=== PATIENT | female | born 1955 | race Caucasian/White ===

== ENCOUNTER 2016-03-19 05:15 | Emergency (ER) | payer BC, OTHER ==
[2016-03-19 05:23] VITALS: BMI 21.4
--- NOTE | 2016-03-19 06:03 | PDOC ---
History of Present Illness - General History Source: Patient Exam Limitations: No Limitations - History of Present Illness Initial Comments: 03/19/16 06:10 The patient is a 60 year old female with history of hypertension, diabetes, in a persistent vegetative state s/p trach tube, brought in by EMS with her for difficulty breathing.. Per the , the patient was noted to be desatting tonight. Her family tried to clean her trach tube with only brief improvement of her O2 sat. Her O2 saturation continued to decrease, prompting them to bring the patient to the ED for evaluation. No fever or recent illness. Patient is unable to provide remainder of history secondary to persistent vegetative state. <Diane Granados - Last Filed: 03/19/16 06:18> <Siddharth Schaeffer - Last Filed: 03/19/16 07:41> - General Chief Complaint: Respiratory Distress Stated Complaint: DIFF BREATHING Time Seen by Provider: 03/19/16 05:22 Past History <Diane Granados - Last Filed: 03/19/16 06:18> - Past Medical History Cancer: Yes (thymoma 25 years ago s/p chemoradiation therapy) Cardiac Disorders: Yes (cardiac arrest) CVA: Yes Diabetes: Yes HTN: Yes - Psycho/Social/Smoking Cessation Hx Anxiety: No Suicidal Ideation: No Smoking History: Never smoked Have you smoked in the past 12 months: No Number of Cigarettes Smoked Daily: 0 Hx Alcohol Use: No Drug/Substance Use Hx: No Substance Use Type: None Hx Substance Use Treatment: No <Siddharth Schaeffer - Last Filed: 03/19/16 07:41> - Past Medical History Allergies/Adverse Reactions: Allergies Allergy/AdvReac Type Severity Reaction Status Date / Time No Known Allergies Allergy Verified 10/01/15 08:42 Home Medications: Ambulatory Orders Ascorbic Acid [Vitamin C] 500 mg GT DAILY 10/01/15 Calcium Citrate 0 mg GT DAILY 10/01/15 Digoxin [Lanoxin -] 0 mg GT DAILY 10/01/15 Insulin Glargine,Hum.rec.anlog [Lantus (10mL VIAL) -] 34 units SQ AM 10/01/15 Insulin Regular [Novolin R Vial -] 0 unit SQ TID 10/01/15 Iron 65 mg GT DAILY 10/01/15 Levothyroxine [Synthroid -] 75 mcg GT DAILY 10/01/15 Metformin HCl [Metformin HCl ER] 500 mg GT BID 10/01/15 Multivitamin [Poly-Vitamin] 1 each GT DAILY 10/01/15 Ramipril 2.5 mg GT BID 10/01/15 Warfarin Sodium [Coumadin] 2 mg GT DAILY 10/01/15 Levofloxacin [Levaquin] 750 mg PO DAILY #10 tablet MDD 1 03/19/16 Review of Systems - Review of Systems Able to Perform ROS?: No Comments:: 03/19/16 06:15 Unable to obtain ROS secondary to clinical condition. <Diane Granados - Last Filed: 03/19/16 06:18> *Physical Exam - Vital Signs Last Vital Signs Temp Pulse Resp BP Pulse Ox 101.3 F H 97 H 16 109/67 100 03/19/16 05:19 03/19/16 05:19 03/19/16 05:19 03/19/16 05:19 03/19/16 05:19 - Physical Exam Comments: 03/19/16 06:16 GENERAL: Breathing, but in vegetative state. Not arousable to stimuli. HEAD: No signs of trauma EYES: Sclera anicteric, conjunctiva clear ENT: Auricles normal inspection, nares patent. Moist mucosa. NECK: Normal ROM, supple, no lymphadenopathy, JVD, or masses LUNGS: Upper airway trasmitted sounds. Rhonchi at the left lung base. HEART: Regular rate and rhythm, normal S1 and S2, no murmurs, rubs or gallops ABDOMEN: Soft, normoactive bowel sounds. No guarding, no rebound. No masses EXTREMITIES: No edema. No clubbing or cyanosis. No cords, erythema. NEUROLOGICAL: Unable to assess. SKIN: Warm, Dry, normal turgor. <Diane Granados - Last Filed: 03/19/16 06:18> - Vital Signs Last Vital Signs Temp Pulse Resp BP Pulse Ox 101.3 F H 97 H 16 109/67 100 03/19/16 05:19 03/19/16 05:19 03/19/16 05:19 03/19/16 05:19 03/19/16 05:19 <Siddharth Schaeffer - Last Filed: 03/19/16 07:41> ED Treatment Course - LABORATORY CBC & Chemistry Diagram: 03/19/16 06:00 03/19/16 06:00 <Diane Granados - Last Filed: 03/19/16 06:18> - LABORATORY CBC & Chemistry Diagram: 03/19/16 06:00 03/19/16 06:00 - RADIOLOGY Radiology Studies Ordered: Category Date Time Status CHEST X-RAY PORTABLE* [RAD] Stat Radiology 03/19/16 05:23 Ordered <Siddharth Shcaeffer - Last Filed: 03/19/16 07:41> Medical Decision Making - Medical Decision Making 03/19/16 06:19 O2 Sat is 98 on ED arrival. Plan- CBC, CMP, Lactic Acid, BNP, PT/INT Blood cultures Chest x-ray <Diane Granados - Last Filed: 03/19/16 06:18> - Medical Decision Making 03/19/16 07:40 Patient's does not want to admit her to the hospital. Dr Castro is out of town. Dr. Corley is covering and thinks that would be ok. Encouraged the to bring her back if she is not improving. Will DC Home on Levqauin. <Siddharth Schaeffer - Last Filed: 03/19/16 07:41> *DC/Admit/Observation/Transfer - Attestations Scribe Attestion: 03/19/16 06:18 Documentation prepared by Diane Granados, acting as medical translator for Siddharth Schaeffer DO. <Diane Granados - Last Filed: 03/19/16 06:18> - Discharge Dispostion Admit: No - Attestations Physician Attestion: 03/19/16 05:58 I, Dr. Siddharth Schaeffer, attest that this document has been prepared under my direction and personally reviewed by me in its entirety. I further attest, that it accurately reflects all work, treatment, procedures and medical decision -making performed by me. <Siddharth Schaeffer - Last Filed: 03/19/16 07:41> Diagnosis at time of Disposition: Right lower lobe pneumonia Qualifiers: Pneumonia type: aspiration pneumonia Aspiration pneumonia type: unspecified Qualified Code(s): J69.0 - Pneumonitis due to inhalation of food and vomit - Discharge Dispostion Disposition: HOME Condition at time of disposition: Guarded - Prescriptions Prescriptions: Levofloxacin [Levaquin] 750 mg PO DAILY #10 tablet MDD 1 - Referrals Referrals: Irma Castro MD [Primary Care Provider] - - Patient Instructions Printed Discharge Instructions: Pneumonia-Adult, DI for Pneumonia -- Adult Additional Instructions: Dr. Ornelas- I think Levaquin is better than Augmentin for this pneumonia. I spoke with Dr. Corley, it is not the best for her to go home, but I understand why you would prefer it that way. I am not going to ask you to sign AMA but I want you to promise to bring her back if she is getting worse or not improving. All the best- Dr. Siddharth Schaeffer
[2016-03-19 06:17] LABS: MCH 23.1 pg (25.7-33.7); MCHC 30.7 g/dl (32.0-36.0); MEAN CELL VOLUME 75.2 fl (80-96); MEAN PLT VOLUME 8.9 fl (7.5-11.1); PLATELET COUNT 382 K/MM3 (134-434); RDW 19.3 % (11.6-15.6); WHITE BLOOD COUNT 20.5 K/mm3 (4.0-10.0)
[2016-03-19] MEDS ORDERED: INSULIN DETEMIR 100 UNITS/ML MDV SQ ONE ×2 (06:20→06:23)
[2016-03-19 06:30] LABS: INR 1.29 (0.82-1.09); PROTHROMBIN TIME (PATIENT) 14.3 SEC (9.98-11.88)
[2016-03-19 06:40] LABS: ALBUMIN 3.5 g/dl (3.4-5.0); ANION GAP 10 (8-16); BILIRUBIN,TOTAL 1.1 mg/dL (0.2-1.0); CALCIUM 9.1 mg/dL (8.5-10.1); CO2 30 mmol/L (21-32); CREATININE 0.6 mg/dL (0.55-1.02); GLUCOSE,RANDOM 252 mg/dL (74-106); SGPT/ALT 19 U/L (12-78); TOT PROT 8.3 g/dl (6.4-8.2)
[2016-03-19 06:42] LABS: ALK PHOS 105 U/L (45-117)
[2016-03-19 06:45] LABS: SGOT/AST 27 U/L (15-37)
[2016-03-19] MEDS ORDERED: CEFTRIAXONE 1 GM in DEXTROSE 5%-WATER - 50 ML IVPB ONE (07:16)
[2016-03-19] MEDS ORDERED: AZITHROMYCIN IVPB 500 MG in DEXTROSE 5%-WATER - 250 ML IVPB ONE (07:16)
[2016-03-19] MEDS ORDERED: CEFTRIAXONE 50 ML ONE (07:24)
[2016-03-19 07:37] VITALS: BP 104/56; PULSE 90; TEMP 99.7
[2016-03-19] MEDS ORDERED: SODIUM CHLORIDE 0.9% 1000 ML INFUS.BAG IV ONE (09:08)
== END 2016-03-19 09:31 | disposition home or self-care (01) ==
LOC: JER 05:15
PROC: 3E03329 Introduction of Other Anti-infective into Peripheral Vein, Percutaneous Approach (ICD-10-PCS; principal; 2016-03-19)
PROC: 3E013VG Introduction of Insulin into Subcutaneous Tissue, Percutaneous Approach (ICD-10-PCS; 2016-03-19)
DX: J69.0 Pneumonitis due to inhalation of food and vomit (principal); Z93.0 Tracheostomy status; I10 Essential (primary) hypertension; E11.9 Type 2 diabetes mellitus without complications; Z79.4 Long term (current) use of insulin; Z86.73 Personal history of transient ischemic attack (TIA), and cerebral infarction without residual deficits; Z86.74 Personal history of sudden cardiac arrest; Z85.89 Personal history of malignant neoplasm of other organs and systems
CPT/HCPCS: 36415; 71010-TC; 80053; 83605; 83880; 85025; 85610; 87040; 99285-25

== ENCOUNTER 2017-05-30 21:32 | Inpatient (IN) | payer OTHER ==
[2017-05-30 21:50] VITALS: BMI 20.9
[2017-06-18 08:54] VITALS: BP 101/63; TEMP 97.5
[2017-06-18 09:12] VITALS: PULSE 73
== END 2017-06-18 11:14 | disposition home or self-care (01) | DRG 870 ==
LOC: JER 21:32 → JERBED 05-31 03:33 → J7W 05-31 08:07 → JICU 06-01 13:45 → J5S 06-05 16:56
PROVIDERS: ADMIT Internal Medicine; ATTEND Internal Medicine
PROC: 3E0G76Z Introduction of Nutritional Substance into Upper GI, Via Natural or Artificial Opening (ICD-10-PCS; 2017-05-31)
PROC: 5A1955Z Respiratory Ventilation, Greater than 96 Consecutive Hours (ICD-10-PCS; principal; 2017-06-01)
DX: A41.9 Sepsis, unspecified organism (principal); J18.1 Lobar pneumonia, unspecified organism; J96.21 Acute and chronic respiratory failure with hypoxia; L89.154 Pressure ulcer of sacral region, stage 4; M86.8X8 Other osteomyelitis, other site; G93.1 Anoxic brain damage, not elsewhere classified; K94.23 Gastrostomy malfunction; I50.22 Chronic systolic (congestive) heart failure; E87.1 Hypo-osmolality and hyponatremia; N39.0 Urinary tract infection, site not specified; R64 Cachexia; J95.851 Ventilator associated pneumonia; I25.10 Atherosclerotic heart disease of native coronary artery without angina pectoris; Z79.01 Long term (current) use of anticoagulants; I50.9 Heart failure, unspecified; Z79.4 Long term (current) use of insulin; N20.0 Calculus of kidney; E11.69 Type 2 diabetes mellitus with other specified complication; L89.159 Pressure ulcer of sacral region, unspecified stage; I27.20 Pulmonary hypertension, unspecified; K59.8 Other specified functional intestinal disorders; K59.01 Slow transit constipation; Y83.8 Other surgical procedures as the cause of abnormal reaction of the patient, or of later complication, without mention of misadventure at the time of the procedure; L98.8 Other specified disorders of the skin and subcutaneous tissue; D64.9 Anemia, unspecified; E83.39 Other disorders of phosphorus metabolism; E03.9 Hypothyroidism, unspecified; Z86.73 Personal history of transient ischemic attack (TIA), and cerebral infarction without residual deficits; Z93.0 Tracheostomy status; I34.0 Nonrheumatic mitral (valve) insufficiency; I36.1 Nonrheumatic tricuspid (valve) insufficiency; I44.7 Left bundle-branch block, unspecified; I48.2 Chronic atrial fibrillation; I35.0 Nonrheumatic aortic (valve) stenosis; Y84.8 Other medical procedures as the cause of abnormal reaction of the patient, or of later complication, without mention of misadventure at the time of the procedure
CPT/HCPCS: 36415; 36600; 71045-TC-FY; 74018-TC-FY; 74177-TC; 80048; 80053; 80076; 81003; 81015; 82803; 82962; 83605; 83690; 83735; 83880; 84100; 84443; 84480; 84484; 85025; 85027; 85610; 85730; 87040; 87070; 87086; 87186; 87205; 93005; 93010; 93306-TC; 94002; 94640; 99284-25; G0480; J7030; J7620

== ENCOUNTER 2020-03-21 04:28 | Inpatient (IN) | payer OTHER ==
[2020-03-21] MEDS ORDERED: VANCOMYCIN 1 GM in D5W (PRE-DOCKED) 1,000 MG/250 ML IVPB ONE (04:44)
[2020-03-21] MEDS ORDERED: PIPERACILLIN/TAZOB 4.5 GM 4.5 GM in DEXTROSE 5%-WATER 100 ML IVPB ONE (04:44)
[2020-03-21] MEDS ORDERED: LACTATED RINGERS SOLUTION 1000 ML INFUS.BAG IV ONE (04:45)
[2020-03-21] MEDS ORDERED: PIPERACILLIN/TAZOB 4.5 GM 4.5 GM/100 ML BAG IVPB ONE (05:00)
[2020-03-21 05:10] LABS: BASO % 0.2 % (0-2.0); EOS % 0.1 % (0-4.5); HEMATOCRIT 35.5 % (32.4-45.2); HEMOGLOBIN 11.6 GM/dL (10.7-15.3); LYMPH % 2.9 % (8-40); MCH 23.7 pg (25.7-33.7); MCHC 32.7 g/dl (32.0-36.0); MEAN CELL VOLUME 72.5 fl (80-96); MEAN PLT VOLUME 9.4 fl (7.5-11.1); MONO % 6.2 % (3.8-10.2); NEUT % 90.6 % (42.8-82.8); PLATELET COUNT 217 K/MM3 (134-434); RDW 17.2 % (11.6-15.6); WHITE BLOOD COUNT 16.4 K/mm3 (4.0-10.0)
[2020-03-21 05:19] LABS: INR 1.56 (0.83-1.09); PROTHROMBIN TIME (PATIENT) 18.6 SEC (9.7-13.0)
[2020-03-21 05:21] LABS: ACTIVATED PTT 31.7 SECONDS (25.2-36.5)
[2020-03-21 05:30] LABS: POTASSIUM 4.5 mmol/L (3.5-5.1)
[2020-03-21] MEDS ORDERED: VANCOMYCIN 1 GRAM (PRE-DOCKED) 1,000 MG/250 ML BAG IVPB ONE (05:31)
[2020-03-21 05:32] LABS: ALBUMIN 3.2 g/dl (3.4-5.0); BLOOD UREA NITROGEN 30.6 mg/dL (7-18); CALCIUM 8.9 mg/dL (8.5-10.1)
[2020-03-21 05:35] LABS: CREATININE 0.6 mg/dL (0.55-1.3)
[2020-03-21 05:37] LABS: BILIRUBIN,TOTAL 1.6 mg/dL (0.2-1)
[2020-03-21 05:48] LABS: EPI CELLS 15 /uL (0-25.1); HYALINE CASTS 3 /uL (0-3.1); URINE APPEARANCE CLOUDY; URINE BACTERIA 1169 /uL (0-1359); URINE BILIRUBIN NEGATIVE (NEGATIVE); URINE COLOR DK YELLOW; URINE GLUCOSE (UA) NEGATIVE (NEGATIVE); URINE KETONE TRACE (NEGATIVE); URINE LEUK ESTERASE 3+ (NEGATIVE); URINE NITRITE NEGATIVE (NEGATIVE); URINE PROTEIN 1+ (NEGATIVE); URINE WBC 1542 /uL (0-25.8)
[2020-03-21] MEDS ORDERED: SODIUM CHLORIDE 0.9% 500 ML INFUS.BAG IV ONE (05:53)
[2020-03-21] MEDS ORDERED: ACETAMINOPHEN 1000 MG/100 ML VIAL (NON FORMULARY) IVPB ONE (06:03)
[2020-03-21] MEDS ORDERED: ACETAMINOPHEN INJECTION 100 ML IVPB ONE (06:05)
[2020-03-21 06:38] LABS: URINE RBC 84.9 /uL (0-23.9)
[2020-03-21] MEDS: CARVEDILOL 6.25 MG TABLET (FP) GT SCH ×2 (09:04→22:14)
[2020-03-21] MEDS: FERROUS SO4 300 MG/5 ML ORAL SOLN UNIT DOSE CUPS GT SCH (09:05)
[2020-03-21] MEDS: DIGOXIN 250 MCG/5 ML LIQUID GT SCH (09:05)
[2020-03-21] MEDS: LEVOTHYROXINE NA 75 MCG TABLET (FP) GT SCH (09:07)
[2020-03-21] MEDS: ASCORBIC ACID 500 MG/5 ML UNIT DOSE CUP GT SCH (09:07)
[2020-03-21] MEDS: INSULIN SLIDING SCALE (NOVOLOG) 1 VIAL SQ SCH ×3 (09:18→22:13)
[2020-03-21] MEDS ORDERED: PATIENT'S OWN MEDICATION (NON-FORMULARY) (Multivitamin [Poly-Vitamin] 1 EACH Tab.Chew) GT SCH (10:00)
[2020-03-21] MEDS ORDERED: PATIENT'S OWN MEDICATION (NON-FORMULARY) (Calcium Carb, Citrate/Vit D3 [Calcium + D3 Er Ta GT SCH (10:00)
[2020-03-22] MEDS: INSULIN SLIDING SCALE (NOVOLOG) 1 VIAL SQ SCH ×4 (03:02→21:43)
[2020-03-22] MEDS: LEVOTHYROXINE NA 75 MCG TABLET (FP) GT SCH (07:09)
[2020-03-22] MEDS ORDERED: SODIUM CHLORIDE 0.9% 500 ML INFUS.BAG IV ONE (09:13)
[2020-03-22] MEDS: CARVEDILOL 6.25 MG TABLET (FP) GT SCH (11:37)
[2020-03-22] MEDS: DIGOXIN 250 MCG/5 ML LIQUID GT SCH (11:37)
[2020-03-22] MEDS: FERROUS SO4 300 MG/5 ML ORAL SOLN UNIT DOSE CUPS GT SCH (11:37)
[2020-03-22] MEDS: ASCORBIC ACID 500 MG/5 ML UNIT DOSE CUP GT SCH (11:38)
[2020-03-22] MEDS ORDERED: INSULIN (NOVOLOG) ASPART 100 UNITS/ML 10ML VIAL ONE (13:39)
[2020-03-22] MEDS ORDERED: cefTAZidime PENTAHYDRATE 1 GM/50ML PRE-DOCKED (RESTRICTED TO ID) IVPB SCH (13:45)
[2020-03-22] MEDS ORDERED: D5-1/2NS+20 MEQ KCL - 20 MEQ/1,000 ML INFUS.BAG IV SCH (14:15)
[2020-03-22] MEDS ORDERED: ACETAMINOPHEN 1000 MG/100 ML VIAL (NON FORMULARY) IVPB ONE (14:15)
[2020-03-22] MEDS ORDERED: DEXTROSE 5%-WATER - 50 ML IVPB ONE (17:52)
[2020-03-22] MEDS ORDERED: cefTAZidime PENTAHYDRATE 1 GM VIAL (RESTRICTED TO ID) ONE (17:52)
[2020-03-22] MEDS: CEFTAZIDIME PENTAHYDRATE 1 GM in DEXTROSE 5%-WATER - 50 ML IVPB SCH (18:00)
[2020-03-22] MEDS: AMINO ACIDS 4.25%/D5W 1,000 ML IV SCH (21:48)
[2020-03-23] MEDS: CARVEDILOL 6.25 MG TABLET (FP) GT SCH ×3 (00:39→22:33)
[2020-03-23] MEDS ORDERED: PT OWN MED DRAWER 7, Y5N ONE (02:50)
[2020-03-23] MEDS: INSULIN SLIDING SCALE (NOVOLOG) 1 VIAL SQ SCH ×3 (02:52→16:23)
[2020-03-23] MEDS ORDERED: cefTAZidime PENTAHYDRATE 1 GM VIAL (RESTRICTED TO ID) ONE ×3 (03:35→16:45)
[2020-03-23] MEDS ORDERED: DEXTROSE 5%-WATER - 50 ML IVPB ONE ×3 (03:35→16:45)
[2020-03-23] MEDS: CEFTAZIDIME PENTAHYDRATE 1 GM in DEXTROSE 5%-WATER - 50 ML IVPB SCH ×3 (03:38→17:07)
[2020-03-23] MEDS: LEVOTHYROXINE NA 75 MCG TABLET (FP) GT SCH (06:16)
[2020-03-23] MEDS: FERROUS SO4 300 MG/5 ML ORAL SOLN UNIT DOSE CUPS GT SCH (10:03)
[2020-03-23] MEDS: AMINO ACIDS 4.25%/D5W 1,000 ML IV SCH (10:06)
[2020-03-23] MEDS: ASCORBIC ACID 500 MG/5 ML UNIT DOSE CUP GT SCH (10:47)
[2020-03-23] MEDS: DIGOXIN 250 MCG/5 ML LIQUID GT SCH (10:47)
[2020-03-23] MEDS: SILVER SULFADIAZINE 1% TOP CREAM 50 GM JAR TP SCH (14:30)
[2020-03-23 16:34] VITALS: BMI 25.8
[2020-03-24] MEDS ORDERED: DEXTROSE 5%-WATER - 50 ML IVPB ONE ×3 (00:36→17:05)
[2020-03-24] MEDS ORDERED: cefTAZidime PENTAHYDRATE 1 GM VIAL (RESTRICTED TO ID) ONE ×3 (00:36→17:04)
[2020-03-24] MEDS: CEFTAZIDIME PENTAHYDRATE 1 GM in DEXTROSE 5%-WATER - 50 ML IVPB SCH ×3 (02:02→17:19)
[2020-03-24] MEDS: LEVOTHYROXINE NA 75 MCG TABLET (FP) GT SCH (06:08)
[2020-03-24] MEDS: INSULIN SLIDING SCALE (NOVOLOG) 1 VIAL SQ SCH ×2 (06:45→17:19)
[2020-03-24] MEDS ORDERED: PT OWN MED DRAWER 7, Y5N ONE ×2 (09:46→18:43)
[2020-03-24] MEDS: CARVEDILOL 6.25 MG TABLET (FP) GT SCH ×2 (09:50→21:28)
[2020-03-24] MEDS: SILVER SULFADIAZINE 1% TOP CREAM 50 GM JAR TP SCH (09:50)
[2020-03-24] MEDS: ASCORBIC ACID 500 MG/5 ML UNIT DOSE CUP GT SCH (09:50)
[2020-03-24] MEDS: FERROUS SO4 300 MG/5 ML ORAL SOLN UNIT DOSE CUPS GT SCH (09:50)
[2020-03-24] MEDS: DIGOXIN 250 MCG/5 ML LIQUID GT SCH (09:50)
[2020-03-25] MEDS ORDERED: DEXTROSE 5%-WATER - 50 ML IVPB ONE ×3 (00:45→16:26)
[2020-03-25] MEDS ORDERED: cefTAZidime PENTAHYDRATE 1 GM VIAL (RESTRICTED TO ID) ONE ×3 (00:45→16:26)
[2020-03-25] MEDS: CEFTAZIDIME PENTAHYDRATE 1 GM in DEXTROSE 5%-WATER - 50 ML IVPB SCH ×3 (01:18→17:05)
[2020-03-25] MEDS: INSULIN SLIDING SCALE (NOVOLOG) 1 VIAL SQ SCH ×2 (07:05→17:06)
[2020-03-25] MEDS: LEVOTHYROXINE NA 75 MCG TABLET (FP) GT SCH (07:05)
[2020-03-25] MEDS ORDERED: PT OWN MED DRAWER 7, Y5N ONE (08:57)
[2020-03-25] MEDS: DIGOXIN 250 MCG/5 ML LIQUID GT SCH (09:43)
[2020-03-25] MEDS: ASCORBIC ACID 500 MG/5 ML UNIT DOSE CUP GT SCH (09:43)
[2020-03-25] MEDS: FERROUS SO4 300 MG/5 ML ORAL SOLN UNIT DOSE CUPS GT SCH (09:43)
[2020-03-25] MEDS: CARVEDILOL 6.25 MG TABLET (FP) GT SCH ×2 (09:44→22:57)
[2020-03-25 10:05] LABS: HEMATOCRIT 25.6 % (32.4-45.2); HEMOGLOBIN 8.5 GM/dL (10.7-15.3); MCH 23.8 pg (25.7-33.7); MCHC 33.3 g/dl (32.0-36.0); MEAN CELL VOLUME 71.6 fl (80-96); MEAN PLT VOLUME 9.6 fl (7.5-11.1); PLATELET COUNT 220 K/MM3 (134-434); RBC 3.57 M/mm3 (3.60-5.2); RDW 17.1 % (11.6-15.6)
[2020-03-25 10:12] LABS: POTASSIUM 3.5 mmol/L (3.5-5.1)
[2020-03-25 10:29] LABS: ALBUMIN 2.6 g/dl (3.4-5.0); BLOOD UREA NITROGEN 17.5 mg/dL (7-18); CALCIUM 8.4 mg/dL (8.5-10.1)
[2020-03-25 10:32] LABS: CREATININE 0.5 mg/dL (0.55-1.3)
[2020-03-25 10:33] LABS: TOT PROT 6.9 g/dl (6.4-8.2)
[2020-03-25 10:35] LABS: BILIRUBIN,TOTAL 1.4 mg/dL (0.2-1)
[2020-03-25] MEDS: SILVER SULFADIAZINE 1% TOP CREAM 50 GM JAR TP SCH (13:00)
[2020-03-25] MEDS ORDERED: INSULIN (NOVOLOG) ASPART 100 UNITS/ML 10ML VIAL ONE (16:26)
[2020-03-26] MEDS ORDERED: cefTAZidime PENTAHYDRATE 1 GM VIAL (RESTRICTED TO ID) ONE ×3 (02:10→16:43)
[2020-03-26] MEDS ORDERED: DEXTROSE 5%-WATER - 50 ML IVPB ONE ×3 (02:10→16:43)
[2020-03-26] MEDS: CEFTAZIDIME PENTAHYDRATE 1 GM in DEXTROSE 5%-WATER - 50 ML IVPB SCH ×3 (02:13→16:50)
[2020-03-26] MEDS ORDERED: PANTOPRAZOLE SODIUM 40 MG VIAL IVPUSH ONE (02:15)
[2020-03-26] MEDS ORDERED: METOCLOPRAMIDE HCL INJECTION 10 MG/2 ML VIAL IVPUSH ONE (02:15)
[2020-03-26] MEDS: INSULIN SLIDING SCALE (NOVOLOG) 1 VIAL SQ SCH ×2 (07:09→16:48)
[2020-03-26] MEDS: LEVOTHYROXINE NA 75 MCG TABLET (FP) GT SCH (07:09)
[2020-03-26 09:27] LABS: BASO % 0.4 % (0-2.0); EOS % 2.7 % (0-4.5); HEMATOCRIT 29.1 % (32.4-45.2); HEMOGLOBIN 9.3 GM/dL (10.7-15.3); LYMPH % 12.1 % (8-40); MCH 22.9 pg (25.7-33.7); MCHC 32.1 g/dl (32.0-36.0); MEAN CELL VOLUME 71.4 fl (80-96); MONO % 8.4 % (3.8-10.2); NEUT % 76.4 % (42.8-82.8); PLATELET COUNT 268 K/MM3 (134-434); RBC 4.08 M/mm3 (3.60-5.2); RDW 17.4 % (11.6-15.6); WHITE BLOOD COUNT 12.8 K/mm3 (4.0-10.0)
[2020-03-26] MEDS: FERROUS SO4 300 MG/5 ML ORAL SOLN UNIT DOSE CUPS GT SCH (09:35)
[2020-03-26] MEDS: CARVEDILOL 6.25 MG TABLET (FP) GT SCH ×2 (09:35→22:20)
[2020-03-26 09:42] LABS: POTASSIUM 3.2 mmol/L (3.5-5.1)
[2020-03-26 10:01] LABS: ALBUMIN 2.8 g/dl (3.4-5.0); BLOOD UREA NITROGEN 13.4 mg/dL (7-18); CALCIUM 8.5 mg/dL (8.5-10.1)
[2020-03-26 10:05] LABS: BILIRUBIN,TOTAL 1.2 mg/dL (0.2-1); TOT PROT 7.3 g/dl (6.4-8.2)
[2020-03-26] MEDS: DIGOXIN 250 MCG/5 ML LIQUID GT SCH (10:07)
[2020-03-26] MEDS: ASCORBIC ACID 500 MG/5 ML UNIT DOSE CUP GT SCH (10:07)
[2020-03-26 10:08] LABS: CREATININE 0.4 mg/dL (0.55-1.3)
[2020-03-26] MEDS: SILVER SULFADIAZINE 1% TOP CREAM 50 GM JAR TP SCH (11:30)
[2020-03-26 11:48] LABS: MAGNESIUM 1.9 mg/dL (1.8-2.4)
[2020-03-26] MEDS ORDERED: POTASSIUM CHLORIDE 10 MEQ PREMIX IVPB (POTASSIUM RIDER) IVPB SCH (12:15)
[2020-03-26] MEDS: PANTOPRAZOLE SODIUM 40 MG VIAL IVPUSH SCH (12:31)
[2020-03-26] MEDS: POTASSIUM CHLORIDE 10 MEQ PREMIX IVPB (POTASSIUM RIDER) IVPB SCH ×2 (12:31→12:32)
[2020-03-26] MEDS: BACITRACIN 15 GM TUBE TOPICAL OINTMENT TP SCH (12:31)
[2020-03-26] MEDS: ONDANSETRON 4 MG/2 ML VIAL IVPUSH PRN (12:35)
[2020-03-26] MEDS: ENOXAPARIN NA (PORCINE) 40 MG/0.4 ML DISP.SYRIN SQ SCH (12:42)
[2020-03-26] MEDS: KCL 10 MEQ IVPB 10 MEQ/100 ML INFUS.BAG IVPB SCH ×3 (12:52→15:04)
[2020-03-26] MEDS: AMINO ACIDS 4.25%/D5W 1,000 ML IV SCH ×2 (16:19→23:40)
[2020-03-27] MEDS ORDERED: DEXTROSE 5%-WATER - 50 ML IVPB ONE ×3 (01:23→16:58)
[2020-03-27] MEDS ORDERED: cefTAZidime PENTAHYDRATE 1 GM VIAL (RESTRICTED TO ID) ONE ×3 (01:23→16:57)
[2020-03-27] MEDS: CEFTAZIDIME PENTAHYDRATE 1 GM in DEXTROSE 5%-WATER - 50 ML IVPB SCH ×3 (01:48→17:08)
[2020-03-27] MEDS: AMINO ACIDS 4.25%/D5W 1,000 ML IV SCH ×4 (05:25→23:15)
[2020-03-27] MEDS: INSULIN SLIDING SCALE (NOVOLOG) 1 VIAL SQ SCH ×2 (06:35→17:09)
[2020-03-27] MEDS: LEVOTHYROXINE NA 75 MCG TABLET (FP) GT SCH (06:35)
[2020-03-27 09:32] LABS: ALBUMIN 2.4 g/dl (3.4-5.0)
[2020-03-27 09:33] LABS: BLOOD UREA NITROGEN 17.5 mg/dL (7-18)
[2020-03-27 09:35] LABS: CREATININE 0.5 mg/dL (0.55-1.3)
[2020-03-27 09:36] LABS: TOT PROT 6.5 g/dl (6.4-8.2)
[2020-03-27 09:37] LABS: CALCIUM 8.1 mg/dL (8.5-10.1); MAGNESIUM 1.7 mg/dL (1.8-2.4)
[2020-03-27] MEDS: PANTOPRAZOLE SODIUM 40 MG VIAL IVPUSH SCH (09:45)
[2020-03-27] MEDS: FERROUS SO4 300 MG/5 ML ORAL SOLN UNIT DOSE CUPS GT SCH (09:50)
[2020-03-27] MEDS: ENOXAPARIN NA (PORCINE) 40 MG/0.4 ML DISP.SYRIN SQ SCH (09:50)
[2020-03-27] MEDS: CARVEDILOL 6.25 MG TABLET (FP) GT SCH ×2 (09:52→22:52)
[2020-03-27] MEDS: ASCORBIC ACID 500 MG/5 ML UNIT DOSE CUP GT SCH (09:53)
[2020-03-27] MEDS: DIGOXIN 250 MCG/5 ML LIQUID GT SCH (10:06)
[2020-03-27] MEDS: POTASSIUM CHLORIDE 20 MEQ PREMIX IVPB 100 ML IVPB SCH (11:53)
[2020-03-27] MEDS ORDERED: POTASSIUM CHLORIDE ORAL LIQUID 20 MEQ/15 ML PO ONE (12:00)
[2020-03-27] MEDS ORDERED: MAGNESIUM SULF 50% (8.12 MEQ/2 ML-1 GM VIAL) IVPB ONE (12:00)
[2020-03-27] MEDS: BACITRACIN 15 GM TUBE TOPICAL OINTMENT TP SCH (12:25)
[2020-03-27] MEDS: SILVER SULFADIAZINE 1% TOP CREAM 50 GM JAR TP SCH (12:25)
[2020-03-27] MEDS: KCL 10 MEQ IVPB 10 MEQ/100 ML INFUS.BAG IVPB SCH ×3 (13:08→15:43)
[2020-03-27 14:53] LABS: PHOSPHOROUS 1.2 mg/dL (2.5-4.9)
[2020-03-27 19:34] LABS: BASO % 0.7 % (0-2.0); HEMATOCRIT 28.1 % (32.4-45.2); HEMOGLOBIN 8.8 GM/dL (10.7-15.3); LYMPH % 12.9 % (8-40); MCH 22.8 pg (25.7-33.7); MCHC 31.4 g/dl (32.0-36.0); MEAN CELL VOLUME 72.5 fl (80-96); MEAN PLT VOLUME 10.8 fl (7.5-11.1); MONO % 9.9 % (3.8-10.2); NEUT % 73.5 % (42.8-82.8); PLATELET COUNT 280 K/MM3 (134-434); RBC 3.88 M/mm3 (3.60-5.2); RDW 17.9 % (11.6-15.6); WHITE BLOOD COUNT 13.5 K/mm3 (4.0-10.0)
[2020-03-27 21:09] LABS: ANISOCYTOSIS 3+; MACROCYTOSIS 0; OVALOCYTE 1+; PLATELET ESTIMATE NORMAL; TARGET CELLS 1+
[2020-03-27] MEDS: DOXYCYCLINE INJECTION 100 MG in DEXTROSE 5%-WATER - 100 ML IVPB SCH (22:52)
[2020-03-28] MEDS ORDERED: DEXTROSE 5%-WATER - 50 ML IVPB ONE ×3 (04:02→17:11)
[2020-03-28] MEDS ORDERED: cefTAZidime PENTAHYDRATE 1 GM VIAL (RESTRICTED TO ID) ONE ×3 (04:02→17:11)
[2020-03-28] MEDS: CEFTAZIDIME PENTAHYDRATE 1 GM in DEXTROSE 5%-WATER - 50 ML IVPB SCH ×3 (04:06→17:25)
[2020-03-28] MEDS: AMINO ACIDS 4.25%/D5W 1,000 ML IV SCH ×3 (06:41→18:15)
[2020-03-28] MEDS: LEVOTHYROXINE NA 75 MCG TABLET (FP) GT SCH ×2 (06:41→06:50)
[2020-03-28] MEDS: INSULIN SLIDING SCALE (NOVOLOG) 1 VIAL SQ SCH ×2 (06:47→17:38)
[2020-03-28] MEDS ORDERED: POTASSIUM CHLORIDE TABS 20 MEQ TABLET.ER (FP) PO SCH (10:00)
[2020-03-28 10:08] LABS: BASO % 0.5 % (0-2.0); EOS % 3.4 % (0-4.5); HEMATOCRIT 25.7 % (32.4-45.2); HEMOGLOBIN 8.2 GM/dL (10.7-15.3); LYMPH % 15.6 % (8-40); MCH 23.1 pg (25.7-33.7); MCHC 32.1 g/dl (32.0-36.0); MEAN CELL VOLUME 71.9 fl (80-96); MEAN PLT VOLUME 9.3 fl (7.5-11.1); MONO % 9.9 % (3.8-10.2); NEUT % 70.6 % (42.8-82.8); PLATELET COUNT 271 K/MM3 (134-434); RBC 3.57 M/mm3 (3.60-5.2); RDW 17.3 % (11.6-15.6)
[2020-03-28 10:33] LABS: ALBUMIN 2.5 g/dl (3.4-5.0); BLOOD UREA NITROGEN 17.2 mg/dL (7-18); CALCIUM 8.3 mg/dL (8.5-10.1); MAGNESIUM 1.9 mg/dL (1.8-2.4)
[2020-03-28 10:36] LABS: CREATININE 0.5 mg/dL (0.55-1.3)
[2020-03-28 10:38] LABS: BILIRUBIN,TOTAL 1.6 mg/dL (0.2-1); TOT PROT 6.7 g/dl (6.4-8.2)
[2020-03-28 11:20] LABS: POTASSIUM 2.9 mmol/L (3.5-5.1)
[2020-03-28] MEDS: ENOXAPARIN NA (PORCINE) 40 MG/0.4 ML DISP.SYRIN SQ SCH (11:45)
[2020-03-28] MEDS: CARVEDILOL 6.25 MG TABLET (FP) GT SCH ×2 (11:48→22:27)
[2020-03-28] MEDS: DOXYCYCLINE INJECTION 100 MG in DEXTROSE 5%-WATER - 100 ML IVPB SCH ×2 (12:18→22:27)
[2020-03-28] MEDS: ASCORBIC ACID 500 MG/5 ML UNIT DOSE CUP GT SCH (15:30)
[2020-03-28] MEDS: FERROUS SO4 300 MG/5 ML ORAL SOLN UNIT DOSE CUPS GT SCH (15:30)
[2020-03-28] MEDS: POTASSIUM CHLORIDE ORAL LIQUID 20 MEQ/15 ML GT SCH ×2 (15:30→22:27)
[2020-03-28] MEDS: PANTOPRAZOLE SODIUM 40 MG VIAL IVPUSH SCH (15:32)
[2020-03-28] MEDS: SILVER SULFADIAZINE 1% TOP CREAM 50 GM JAR TP SCH (15:33)
[2020-03-28] MEDS: DIGOXIN 250 MCG/5 ML LIQUID GT SCH (15:33)
[2020-03-28] MEDS: BACITRACIN 15 GM TUBE TOPICAL OINTMENT TP SCH (15:33)
[2020-03-29] MEDS ORDERED: cefTAZidime PENTAHYDRATE 1 GM VIAL (RESTRICTED TO ID) ONE ×3 (01:08→17:11)
[2020-03-29] MEDS ORDERED: DEXTROSE 5%-WATER - 50 ML IVPB ONE ×3 (01:08→17:11)
[2020-03-29] MEDS: AMINO ACIDS 4.25%/D5W 1,000 ML IV SCH ×2 (01:55→06:23)
[2020-03-29] MEDS: CEFTAZIDIME PENTAHYDRATE 1 GM in DEXTROSE 5%-WATER - 50 ML IVPB SCH ×3 (01:56→17:14)
[2020-03-29] MEDS: INSULIN SLIDING SCALE (NOVOLOG) 1 VIAL SQ SCH ×2 (06:25→16:28)
[2020-03-29] MEDS: POTASSIUM CHLORIDE ORAL LIQUID 20 MEQ/15 ML GT SCH ×3 (06:33→21:58)
[2020-03-29] MEDS: LEVOTHYROXINE NA 75 MCG TABLET (FP) GT SCH (06:33)
[2020-03-29] MEDS ORDERED: PT OWN MED DRAWER 7, Y5N ONE (09:13)
[2020-03-29] MEDS: PANTOPRAZOLE SODIUM 40 MG VIAL IVPUSH SCH (09:29)
[2020-03-29] MEDS: FERROUS SO4 300 MG/5 ML ORAL SOLN UNIT DOSE CUPS GT SCH (09:29)
[2020-03-29] MEDS: CARVEDILOL 6.25 MG TABLET (FP) GT SCH ×2 (09:29→21:58)
[2020-03-29] MEDS: DIGOXIN 250 MCG/5 ML LIQUID GT SCH (09:30)
[2020-03-29] MEDS: DOXYCYCLINE INJECTION 100 MG in DEXTROSE 5%-WATER - 100 ML IVPB SCH ×2 (09:35→21:59)
[2020-03-29] MEDS: ENOXAPARIN NA (PORCINE) 40 MG/0.4 ML DISP.SYRIN SQ SCH (09:50)
[2020-03-29 10:19] LABS: POTASSIUM 4.1 mmol/L (3.5-5.1)
[2020-03-29 10:26] LABS: CALCIUM 8.4 mg/dL (8.5-10.1)
[2020-03-29 10:27] LABS: ALBUMIN 2.6 g/dl (3.4-5.0); BLOOD UREA NITROGEN 20.4 mg/dL (7-18)
[2020-03-29 10:30] LABS: BILIRUBIN,TOTAL 0.8 mg/dL (0.2-1); CREATININE 0.5 mg/dL (0.55-1.3); TOT PROT 6.8 g/dl (6.4-8.2)
[2020-03-29] MEDS: ONDANSETRON 4 MG/2 ML VIAL IVPUSH PRN (11:54)
[2020-03-29] MEDS: BACITRACIN 15 GM TUBE TOPICAL OINTMENT TP SCH (13:00)
[2020-03-29] MEDS: SILVER SULFADIAZINE 1% TOP CREAM 50 GM JAR TP SCH (13:00)
[2020-03-29] MEDS: ASCORBIC ACID 500 MG/5 ML UNIT DOSE CUP GT SCH (14:05)
[2020-03-30] MEDS ORDERED: DEXTROSE 5%-WATER - 50 ML IVPB ONE ×3 (00:05→18:12)
[2020-03-30] MEDS ORDERED: cefTAZidime PENTAHYDRATE 1 GM VIAL (RESTRICTED TO ID) ONE ×3 (00:05→18:11)
[2020-03-30] MEDS: CEFTAZIDIME PENTAHYDRATE 1 GM in DEXTROSE 5%-WATER - 50 ML IVPB SCH ×3 (01:49→18:14)
[2020-03-30] MEDS: INSULIN SLIDING SCALE (NOVOLOG) 1 VIAL SQ SCH ×2 (06:35→16:42)
[2020-03-30] MEDS: POTASSIUM CHLORIDE ORAL LIQUID 20 MEQ/15 ML GT SCH (06:35)
[2020-03-30] MEDS: LEVOTHYROXINE NA 75 MCG TABLET (FP) GT SCH (06:37)
[2020-03-30] MEDS ORDERED: INSULIN (NOVOLOG) ASPART 100 UNITS/ML 10ML VIAL ONE (06:52)
[2020-03-30] MEDS ORDERED: PT OWN MED DRAWER 7, Y5N ONE ×2 (09:08→22:04)
[2020-03-30] MEDS: BACITRACIN 15 GM TUBE TOPICAL OINTMENT TP SCH (09:54)
[2020-03-30] MEDS: CARVEDILOL 6.25 MG TABLET (FP) GT SCH ×2 (09:54→22:07)
[2020-03-30] MEDS: ASCORBIC ACID 500 MG/5 ML UNIT DOSE CUP GT SCH (09:58)
[2020-03-30] MEDS: ENOXAPARIN NA (PORCINE) 40 MG/0.4 ML DISP.SYRIN SQ SCH (09:59)
[2020-03-30] MEDS: FERROUS SO4 300 MG/5 ML ORAL SOLN UNIT DOSE CUPS GT SCH (09:59)
[2020-03-30] MEDS: DIGOXIN 250 MCG/5 ML LIQUID GT SCH (10:00)
[2020-03-30] MEDS: PANTOPRAZOLE SODIUM 40 MG VIAL IVPUSH SCH (10:01)
[2020-03-30] MEDS: SILVER SULFADIAZINE 1% TOP CREAM 50 GM JAR TP SCH (10:01)
[2020-03-30] MEDS: DOXYCYCLINE INJECTION 100 MG in DEXTROSE 5%-WATER - 100 ML IVPB SCH ×2 (10:02→22:11)
[2020-03-30] MEDS: MULTIVIT-MINERALS ORAL LIQUID GT SCH (10:02)
[2020-03-31] MEDS ORDERED: cefTAZidime PENTAHYDRATE 1 GM VIAL (RESTRICTED TO ID) ONE ×2 (01:05→10:47)
[2020-03-31] MEDS ORDERED: DEXTROSE 5%-WATER - 50 ML IVPB ONE ×2 (01:05→10:47)
[2020-03-31] MEDS: CEFTAZIDIME PENTAHYDRATE 1 GM in DEXTROSE 5%-WATER - 50 ML IVPB SCH ×2 (01:16→11:38)
[2020-03-31] MEDS: INSULIN SLIDING SCALE (NOVOLOG) 1 VIAL SQ SCH ×2 (06:32→16:39)
[2020-03-31] MEDS: LEVOTHYROXINE NA 75 MCG TABLET (FP) GT SCH (06:33)
[2020-03-31] MEDS: PANTOPRAZOLE SODIUM 40 MG VIAL IVPUSH SCH (11:37)
[2020-03-31] MEDS: SILVER SULFADIAZINE 1% TOP CREAM 50 GM JAR TP SCH (11:37)
[2020-03-31] MEDS: ENOXAPARIN NA (PORCINE) 40 MG/0.4 ML DISP.SYRIN SQ SCH (11:37)
[2020-03-31] MEDS: BACITRACIN 15 GM TUBE TOPICAL OINTMENT TP SCH (11:38)
[2020-03-31] MEDS: DOXYCYCLINE INJECTION 100 MG in DEXTROSE 5%-WATER - 100 ML IVPB SCH ×2 (11:38→22:45)
[2020-03-31] MEDS: MULTIVIT-MINERALS ORAL LIQUID GT SCH (15:10)
[2020-03-31] MEDS: CARVEDILOL 6.25 MG TABLET (FP) GT SCH ×2 (15:11→22:45)
[2020-03-31] MEDS: FERROUS SO4 300 MG/5 ML ORAL SOLN UNIT DOSE CUPS GT SCH (15:11)
[2020-03-31] MEDS: DIGOXIN 250 MCG/5 ML LIQUID GT SCH (15:11)
[2020-03-31] MEDS: ASCORBIC ACID 500 MG/5 ML UNIT DOSE CUP GT SCH (15:12)
[2020-03-31] MEDS: ALBUTEROL SO4 2.5/IPRATROPIUM 0.5 INH SOL 3 ML VIAL.NEB. NEB SCH ×2 (15:53→20:05)
[2020-03-31] MEDS ORDERED: PT OWN MED DRAWER 7, Y5N ONE (22:30)
[2020-04-01] MEDS: LEVOTHYROXINE NA 75 MCG TABLET (FP) GT SCH (06:05)
[2020-04-01] MEDS: INSULIN SLIDING SCALE (NOVOLOG) 1 VIAL SQ SCH ×2 (06:05→16:15)
[2020-04-01] MEDS: ALBUTEROL SO4 2.5/IPRATROPIUM 0.5 INH SOL 3 ML VIAL.NEB. NEB SCH ×4 (08:30→20:10)
[2020-04-01] MEDS: BACITRACIN 15 GM TUBE TOPICAL OINTMENT TP SCH (10:00)
[2020-04-01] MEDS ORDERED: PT OWN MED DRAWER 7, Y5N ONE ×4 (10:26→21:51)
[2020-04-01] MEDS: ENOXAPARIN NA (PORCINE) 40 MG/0.4 ML DISP.SYRIN SQ SCH (11:04)
[2020-04-01] MEDS: INSULIN (LEVEMIR) 100 UNITS/ML UNITS SQ SCH (11:04)
[2020-04-01] MEDS: MULTIVIT-MINERALS ORAL LIQUID GT SCH (11:05)
[2020-04-01] MEDS: ASCORBIC ACID 500 MG/5 ML UNIT DOSE CUP GT SCH (11:05)
[2020-04-01] MEDS: CARVEDILOL 6.25 MG TABLET (FP) GT SCH ×2 (11:07→22:45)
[2020-04-01] MEDS: DIGOXIN 250 MCG/5 ML LIQUID GT SCH (11:08)
[2020-04-01] MEDS: PANTOPRAZOLE SODIUM 40 MG VIAL IVPUSH SCH (12:31)
[2020-04-01] MEDS: DOXYCYCLINE INJECTION 100 MG in DEXTROSE 5%-WATER - 100 ML IVPB SCH (12:31)
[2020-04-01] MEDS: SILVER SULFADIAZINE 1% TOP CREAM 50 GM JAR TP SCH (13:00)
[2020-04-01] MEDS: FERROUS SO4 300 MG/5 ML ORAL SOLN UNIT DOSE CUPS GT SCH (13:06)
[2020-04-01] MEDS: FAMOTIDINE 40 MG/5 ML ORAL SUSPENSION NGT SCH ×2 (17:50→22:45)
[2020-04-02] MEDS: INSULIN SLIDING SCALE (NOVOLOG) 1 VIAL SQ SCH ×2 (06:03→16:45)
[2020-04-02] MEDS: LEVOTHYROXINE NA 75 MCG TABLET (FP) GT SCH (06:03)
[2020-04-02] MEDS: INSULIN (LEVEMIR) 100 UNITS/ML UNITS SQ SCH (06:03)
[2020-04-02] MEDS: ALBUTEROL SO4 2.5/IPRATROPIUM 0.5 INH SOL 3 ML VIAL.NEB. NEB SCH ×4 (08:05→20:53)
[2020-04-02] MEDS: FERROUS SO4 300 MG/5 ML ORAL SOLN UNIT DOSE CUPS GT SCH (10:10)
[2020-04-02] MEDS: DIGOXIN 250 MCG/5 ML LIQUID GT SCH (10:11)
[2020-04-02] MEDS: CARVEDILOL 6.25 MG TABLET (FP) GT SCH ×2 (10:11→22:04)
[2020-04-02] MEDS: MULTIVIT-MINERALS ORAL LIQUID GT SCH (10:11)
[2020-04-02] MEDS: FAMOTIDINE 40 MG/5 ML ORAL SUSPENSION NGT SCH ×2 (10:11→22:04)
[2020-04-02] MEDS: ASCORBIC ACID 500 MG/5 ML UNIT DOSE CUP GT SCH (10:11)
[2020-04-02] MEDS: ENOXAPARIN NA (PORCINE) 40 MG/0.4 ML DISP.SYRIN SQ SCH (10:11)
[2020-04-02] MEDS: BACITRACIN 15 GM TUBE TOPICAL OINTMENT TP SCH (10:12)
[2020-04-02 10:45] LABS: BASO % 0.8 % (0-2.0); EOS % 3.4 % (0-4.5); HEMATOCRIT 32.8 % (32.4-45.2); HEMOGLOBIN 10.4 GM/dL (10.7-15.3); LYMPH % 14.5 % (8-40); MCH 23.4 pg (25.7-33.7); MCHC 31.6 g/dl (32.0-36.0); MONO % 12.2 % (3.8-10.2); NEUT % 69.1 % (42.8-82.8); PLATELET COUNT 285 K/MM3 (134-434); RBC 4.43 M/mm3 (3.60-5.2); WHITE BLOOD COUNT 10.8 K/mm3 (4.0-10.0)
[2020-04-02 10:56] LABS: POTASSIUM 4.4 mmol/L (3.5-5.1)
[2020-04-02 10:59] LABS: ALBUMIN 2.8 g/dl (3.4-5.0); BLOOD UREA NITROGEN 16.8 mg/dL (7-18); CALCIUM 9.3 mg/dL (8.5-10.1)
[2020-04-02 11:01] LABS: CREATININE 0.5 mg/dL (0.55-1.3)
[2020-04-02 11:03] LABS: BILIRUBIN,TOTAL 1.1 mg/dL (0.2-1); TOT PROT 7.2 g/dl (6.4-8.2)
[2020-04-02] MEDS: NYSTATIN 100,000 UNIT/GM TOPICAL CREAM 15 GM TUBE TP SCH (12:00)
[2020-04-02] MEDS: SILVER SULFADIAZINE 1% TOP CREAM 50 GM JAR TP SCH (12:00)
[2020-04-02] MEDS ORDERED: INSULIN (NOVOLOG) ASPART 100 UNITS/ML 10ML VIAL ONE (20:02)
[2020-04-02] MEDS ORDERED: PT OWN MED DRAWER 7, Y5N ONE (22:03)
[2020-04-03] MEDS: INSULIN SLIDING SCALE (NOVOLOG) 1 VIAL SQ SCH ×2 (06:20→16:42)
[2020-04-03] MEDS: LEVOTHYROXINE NA 75 MCG TABLET (FP) GT SCH (06:21)
[2020-04-03] MEDS: ALBUTEROL SO4 2.5/IPRATROPIUM 0.5 INH SOL 3 ML VIAL.NEB. NEB SCH ×4 (08:50→21:30)
[2020-04-03] MEDS: BACITRACIN 15 GM TUBE TOPICAL OINTMENT TP SCH (11:23)
[2020-04-03] MEDS: MULTIVIT-MINERALS ORAL LIQUID GT SCH (11:28)
[2020-04-03] MEDS: SILVER SULFADIAZINE 1% TOP CREAM 50 GM JAR TP SCH (11:28)
[2020-04-03] MEDS: NYSTATIN 100,000 UNIT/GM TOPICAL CREAM 15 GM TUBE TP SCH (11:28)
[2020-04-03] MEDS: ASCORBIC ACID 500 MG/5 ML UNIT DOSE CUP GT SCH (11:28)
[2020-04-03] MEDS: ENOXAPARIN NA (PORCINE) 40 MG/0.4 ML DISP.SYRIN SQ SCH (11:29)
[2020-04-03] MEDS: FAMOTIDINE 40 MG/5 ML ORAL SUSPENSION NGT SCH ×2 (11:33→21:37)
[2020-04-03] MEDS: DIGOXIN 250 MCG/5 ML LIQUID GT SCH (11:35)
[2020-04-03] MEDS: CARVEDILOL 6.25 MG TABLET (FP) GT SCH ×2 (11:37→21:37)
[2020-04-03] MEDS: FERROUS SO4 300 MG/5 ML ORAL SOLN UNIT DOSE CUPS GT SCH (11:37)
[2020-04-03 16:45] LABS: ARTERIAL BLD GAS O2 SATURATION 98.1 mmHg (95-98); ARTERIAL BLOOD GAS BASE EXCESS 4.7 mmol/L (-2-2); ARTERIAL BLOOD GAS PO2 98.8 mmHg (80-100); ARTERIAL BLOOD GAS pH 7.519 (7.350-7.450)
[2020-04-03 16:47] LABS: ALLENS TEST POSITIVE; VENT MODE A/C; VENT RATE 16
[2020-04-03] MEDS: INSULIN (LEVEMIR) 100 UNITS/ML UNITS SQ SCH (19:13)
[2020-04-04] MEDS: INSULIN (LEVEMIR) 100 UNITS/ML UNITS SQ SCH (06:10)
[2020-04-04] MEDS: INSULIN SLIDING SCALE (NOVOLOG) 1 VIAL SQ SCH ×2 (06:10→16:57)
[2020-04-04] MEDS: LEVOTHYROXINE NA 75 MCG TABLET (FP) GT SCH (06:10)
[2020-04-04] MEDS: ALBUTEROL SO4 2.5/IPRATROPIUM 0.5 INH SOL 3 ML VIAL.NEB. NEB SCH ×4 (07:40→20:00)
[2020-04-04] MEDS: BACITRACIN 15 GM TUBE TOPICAL OINTMENT TP SCH (09:35)
[2020-04-04] MEDS: FERROUS SO4 300 MG/5 ML ORAL SOLN UNIT DOSE CUPS GT SCH (09:36)
[2020-04-04] MEDS: MULTIVIT-MINERALS ORAL LIQUID GT SCH (09:36)
[2020-04-04] MEDS: CARVEDILOL 6.25 MG TABLET (FP) GT SCH ×2 (09:36→21:42)
[2020-04-04] MEDS: DIGOXIN 250 MCG/5 ML LIQUID GT SCH (09:36)
[2020-04-04] MEDS: NYSTATIN 100,000 UNIT/GM TOPICAL CREAM 15 GM TUBE TP SCH (09:37)
[2020-04-04] MEDS: ENOXAPARIN NA (PORCINE) 40 MG/0.4 ML DISP.SYRIN SQ SCH (09:37)
[2020-04-04] MEDS: ASCORBIC ACID 500 MG/5 ML UNIT DOSE CUP GT SCH (09:38)
[2020-04-04] MEDS: SILVER SULFADIAZINE 1% TOP CREAM 50 GM JAR TP SCH (09:38)
[2020-04-04] MEDS: FAMOTIDINE 40 MG/5 ML ORAL SUSPENSION NGT SCH ×2 (09:38→21:42)
[2020-04-04] MEDS ORDERED: FUROSEMIDE 100 MG/10 ML INJECTABLE VIAL IVPB SCH (10:00)
[2020-04-04] MEDS ORDERED: FUROSEMIDE 40 MG/4 ML INJECTABLE VIAL IVPB SCH (10:00)
[2020-04-04] MEDS: FUROSEMIDE 40 MG/5 ML UNIT-DOSE CUP GT SCH (11:52)
[2020-04-04] MEDS ORDERED: PT OWN MED DRAWER 7, Y5N ONE (21:22)
[2020-04-05] MEDS: LEVOTHYROXINE NA 75 MCG TABLET (FP) GT SCH (06:02)
[2020-04-05] MEDS: INSULIN SLIDING SCALE (NOVOLOG) 1 VIAL SQ SCH ×2 (06:02→19:02)
[2020-04-05] MEDS: INSULIN (LEVEMIR) 100 UNITS/ML UNITS SQ SCH (06:04)
[2020-04-05] MEDS: ALBUTEROL SO4 2.5/IPRATROPIUM 0.5 INH SOL 3 ML VIAL.NEB. NEB SCH ×2 (07:45→11:33)
[2020-04-05] MEDS ORDERED: PT OWN MED DRAWER 7, Y5N ONE (10:47)
[2020-04-05] MEDS: FERROUS SO4 300 MG/5 ML ORAL SOLN UNIT DOSE CUPS GT SCH (10:51)
[2020-04-05] MEDS: CARVEDILOL 6.25 MG TABLET (FP) GT SCH ×2 (10:51→21:41)
[2020-04-05] MEDS: ENOXAPARIN NA (PORCINE) 40 MG/0.4 ML DISP.SYRIN SQ SCH (10:51)
[2020-04-05] MEDS: FUROSEMIDE 40 MG/5 ML UNIT-DOSE CUP GT SCH (10:52)
[2020-04-05] MEDS: ASCORBIC ACID 500 MG/5 ML UNIT DOSE CUP GT SCH (10:52)
[2020-04-05] MEDS: MULTIVIT-MINERALS ORAL LIQUID GT SCH (10:52)
[2020-04-05] MEDS: DIGOXIN 250 MCG/5 ML LIQUID GT SCH (10:52)
[2020-04-05] MEDS: FAMOTIDINE 40 MG/5 ML ORAL SUSPENSION NGT SCH ×2 (10:53→21:41)
[2020-04-05] MEDS: BACITRACIN 15 GM TUBE TOPICAL OINTMENT TP SCH (10:53)
[2020-04-05] MEDS: NYSTATIN 100,000 UNIT/GM TOPICAL CREAM 15 GM TUBE TP SCH (10:53)
[2020-04-05] MEDS: SILVER SULFADIAZINE 1% TOP CREAM 50 GM JAR TP SCH (10:54)
[2020-04-06] MEDS: INSULIN (LEVEMIR) 100 UNITS/ML UNITS SQ SCH (06:00)
[2020-04-06] MEDS: INSULIN SLIDING SCALE (NOVOLOG) 1 VIAL SQ SCH ×2 (06:00→17:55)
[2020-04-06] MEDS: LEVOTHYROXINE NA 75 MCG TABLET (FP) GT SCH (06:00)
[2020-04-06] MEDS ORDERED: INSULIN (NOVOLOG) ASPART 100 UNITS/ML 10ML VIAL ONE (07:02)
[2020-04-06] MEDS: ENOXAPARIN NA (PORCINE) 40 MG/0.4 ML DISP.SYRIN SQ SCH (11:56)
[2020-04-06] MEDS: FERROUS SO4 300 MG/5 ML ORAL SOLN UNIT DOSE CUPS GT SCH (11:56)
[2020-04-06] MEDS: CARVEDILOL 6.25 MG TABLET (FP) GT SCH ×3 (11:57→22:12)
[2020-04-06] MEDS: FUROSEMIDE 40 MG/5 ML UNIT-DOSE CUP GT SCH (12:01)
[2020-04-06] MEDS: ASCORBIC ACID 500 MG/5 ML UNIT DOSE CUP GT SCH (12:02)
[2020-04-06] MEDS: DIGOXIN 250 MCG/5 ML LIQUID GT SCH (12:02)
[2020-04-06] MEDS: MULTIVIT-MINERALS ORAL LIQUID GT SCH (12:02)
[2020-04-06] MEDS: SILVER SULFADIAZINE 1% TOP CREAM 50 GM JAR TP SCH (12:03)
[2020-04-06] MEDS: BACITRACIN 15 GM TUBE TOPICAL OINTMENT TP SCH (12:03)
[2020-04-06] MEDS: FAMOTIDINE 40 MG/5 ML ORAL SUSPENSION NGT SCH ×2 (12:03→22:12)
[2020-04-06] MEDS: NYSTATIN 100,000 UNIT/GM TOPICAL CREAM 15 GM TUBE TP SCH (12:03)
[2020-04-06] MEDS ORDERED: PT OWN MED DRAWER 7, Y5N ONE (21:49)
[2020-04-07] MEDS: INSULIN SLIDING SCALE (NOVOLOG) 1 VIAL SQ SCH ×2 (06:02→17:08)
[2020-04-07] MEDS: INSULIN (LEVEMIR) 100 UNITS/ML UNITS SQ SCH (06:02)
[2020-04-07] MEDS: LEVOTHYROXINE NA 75 MCG TABLET (FP) GT SCH (06:02)
[2020-04-07] MEDS ORDERED: PT OWN MED DRAWER 7, Y5N ONE ×2 (08:46→21:58)
[2020-04-07] MEDS: ASCORBIC ACID 500 MG/5 ML UNIT DOSE CUP GT SCH (09:25)
[2020-04-07] MEDS: MULTIVIT-MINERALS ORAL LIQUID GT SCH (09:25)
[2020-04-07] MEDS: ENOXAPARIN NA (PORCINE) 40 MG/0.4 ML DISP.SYRIN SQ SCH (09:26)
[2020-04-07] MEDS: FERROUS SO4 300 MG/5 ML ORAL SOLN UNIT DOSE CUPS GT SCH (09:26)
[2020-04-07] MEDS: DIGOXIN 250 MCG/5 ML LIQUID GT SCH (09:26)
[2020-04-07] MEDS: CARVEDILOL 6.25 MG TABLET (FP) GT SCH ×2 (09:27→21:53)
[2020-04-07] MEDS: FUROSEMIDE 40 MG/5 ML UNIT-DOSE CUP GT SCH (09:27)
[2020-04-07] MEDS: FAMOTIDINE 40 MG/5 ML ORAL SUSPENSION NGT SCH ×2 (09:27→22:52)
[2020-04-07] MEDS: BACITRACIN 15 GM TUBE TOPICAL OINTMENT TP SCH (09:30)
[2020-04-07] MEDS: NYSTATIN 100,000 UNIT/GM TOPICAL CREAM 15 GM TUBE TP SCH (09:30)
[2020-04-07] MEDS: SILVER SULFADIAZINE 1% TOP CREAM 50 GM JAR TP SCH (14:40)
[2020-04-08] MEDS: INSULIN (LEVEMIR) 100 UNITS/ML UNITS SQ SCH (06:19)
[2020-04-08] MEDS: LEVOTHYROXINE NA 75 MCG TABLET (FP) GT SCH (06:20)
[2020-04-08] MEDS: INSULIN SLIDING SCALE (NOVOLOG) 1 VIAL SQ SCH ×2 (06:20→17:40)
[2020-04-08] MEDS ORDERED: PT OWN MED DRAWER 7, Y5N ONE ×2 (11:28→22:59)
[2020-04-08] MEDS: MULTIVIT-MINERALS ORAL LIQUID GT SCH (11:34)
[2020-04-08] MEDS: BACITRACIN 15 GM TUBE TOPICAL OINTMENT TP SCH (11:34)
[2020-04-08] MEDS: CARVEDILOL 6.25 MG TABLET (FP) GT SCH ×2 (11:35→23:01)
[2020-04-08] MEDS: ASCORBIC ACID 500 MG/5 ML UNIT DOSE CUP GT SCH (11:35)
[2020-04-08] MEDS: SILVER SULFADIAZINE 1% TOP CREAM 50 GM JAR TP SCH (11:35)
[2020-04-08] MEDS: ENOXAPARIN NA (PORCINE) 40 MG/0.4 ML DISP.SYRIN SQ SCH (11:36)
[2020-04-08] MEDS: FUROSEMIDE 40 MG/5 ML UNIT-DOSE CUP GT SCH (11:36)
[2020-04-08] MEDS: NYSTATIN 100,000 UNIT/GM TOPICAL CREAM 15 GM TUBE TP SCH (11:36)
[2020-04-08] MEDS: DIGOXIN 250 MCG/5 ML LIQUID GT SCH (11:37)
[2020-04-08] MEDS: FAMOTIDINE 40 MG/5 ML ORAL SUSPENSION NGT SCH ×2 (11:37→23:01)
[2020-04-08] MEDS: FERROUS SO4 300 MG/5 ML ORAL SOLN UNIT DOSE CUPS GT SCH (11:48)
[2020-04-09] MEDS: INSULIN (LEVEMIR) 100 UNITS/ML UNITS SQ SCH (06:18)
[2020-04-09] MEDS: LEVOTHYROXINE NA 75 MCG TABLET (FP) GT SCH (06:18)
[2020-04-09] MEDS: INSULIN SLIDING SCALE (NOVOLOG) 1 VIAL SQ SCH ×2 (06:23→18:29)
[2020-04-09] MEDS ORDERED: PT OWN MED DRAWER 7, Y5N ONE (12:04)
[2020-04-09] MEDS: FERROUS SO4 300 MG/5 ML ORAL SOLN UNIT DOSE CUPS GT SCH (12:07)
[2020-04-09] MEDS: ENOXAPARIN NA (PORCINE) 40 MG/0.4 ML DISP.SYRIN SQ SCH (12:07)
[2020-04-09] MEDS: BACITRACIN 15 GM TUBE TOPICAL OINTMENT TP SCH (12:07)
[2020-04-09] MEDS: MULTIVIT-MINERALS ORAL LIQUID GT SCH (12:08)
[2020-04-09] MEDS: NYSTATIN 100,000 UNIT/GM TOPICAL CREAM 15 GM TUBE TP SCH (12:08)
[2020-04-09] MEDS: CARVEDILOL 6.25 MG TABLET (FP) GT SCH ×2 (12:08→21:30)
[2020-04-09] MEDS: ASCORBIC ACID 500 MG/5 ML UNIT DOSE CUP GT SCH (12:08)
[2020-04-09] MEDS: DIGOXIN 250 MCG/5 ML LIQUID GT SCH (12:09)
[2020-04-09] MEDS: FAMOTIDINE 40 MG/5 ML ORAL SUSPENSION NGT SCH ×2 (12:09→21:30)
[2020-04-09] MEDS: FUROSEMIDE 40 MG/5 ML UNIT-DOSE CUP GT SCH (12:09)
[2020-04-09] MEDS: SILVER SULFADIAZINE 1% TOP CREAM 50 GM JAR TP SCH (12:09)
[2020-04-10] MEDS: LEVOTHYROXINE NA 75 MCG TABLET (FP) GT SCH (06:01)
[2020-04-10] MEDS: INSULIN (LEVEMIR) 100 UNITS/ML UNITS SQ SCH (06:03)
[2020-04-10] MEDS: INSULIN SLIDING SCALE (NOVOLOG) 1 VIAL SQ SCH ×2 (06:04→17:15)
[2020-04-10] MEDS ORDERED: PT OWN MED DRAWER 7, Y5N ONE ×2 (09:56→21:32)
[2020-04-10] MEDS: ENOXAPARIN NA (PORCINE) 40 MG/0.4 ML DISP.SYRIN SQ SCH (10:02)
[2020-04-10] MEDS: BACITRACIN 15 GM TUBE TOPICAL OINTMENT TP SCH (10:03)
[2020-04-10] MEDS: MULTIVIT-MINERALS ORAL LIQUID GT SCH (10:03)
[2020-04-10] MEDS: CARVEDILOL 6.25 MG TABLET (FP) GT SCH ×2 (10:03→21:44)
[2020-04-10] MEDS: FERROUS SO4 300 MG/5 ML ORAL SOLN UNIT DOSE CUPS GT SCH (10:03)
[2020-04-10] MEDS: NYSTATIN 100,000 UNIT/GM TOPICAL CREAM 15 GM TUBE TP SCH (10:04)
[2020-04-10] MEDS: DIGOXIN 250 MCG/5 ML LIQUID GT SCH (10:04)
[2020-04-10] MEDS: FAMOTIDINE 40 MG/5 ML ORAL SUSPENSION NGT SCH ×2 (10:04→21:46)
[2020-04-10] MEDS: SILVER SULFADIAZINE 1% TOP CREAM 50 GM JAR TP SCH (10:04)
[2020-04-10] MEDS: FUROSEMIDE 40 MG/5 ML UNIT-DOSE CUP GT SCH (10:04)
[2020-04-10] MEDS: ASCORBIC ACID 500 MG/5 ML UNIT DOSE CUP GT SCH (10:05)
[2020-04-10 11:03] LABS: EOS % 1.6 % (0-4.5); HEMATOCRIT 33.4 % (32.4-45.2); HEMOGLOBIN 10.7 GM/dL (10.7-15.3); LYMPH % 13.6 % (8-40); MCH 23.7 pg (25.7-33.7); MCHC 31.9 g/dl (32.0-36.0); MEAN CELL VOLUME 74.2 fl (80-96); MEAN PLT VOLUME 9.8 fl (7.5-11.1); MONO % 11.5 % (3.8-10.2); NEUT % 72.3 % (42.8-82.8); PLATELET COUNT 240 K/MM3 (134-434); RBC 4.51 M/mm3 (3.60-5.2); RDW 20.1 % (11.6-15.6)
[2020-04-10 11:15] LABS: POTASSIUM 3.5 mmol/L (3.5-5.1)
[2020-04-10 11:18] LABS: BLOOD UREA NITROGEN 37.6 mg/dL (7-18)
[2020-04-10 11:21] LABS: CREATININE 0.6 mg/dL (0.55-1.3)
[2020-04-10 11:24] LABS: CALCIUM 9.5 mg/dL (8.5-10.1)
[2020-04-11] MEDS: INSULIN (LEVEMIR) 100 UNITS/ML UNITS SQ SCH (06:33)
[2020-04-11] MEDS: INSULIN SLIDING SCALE (NOVOLOG) 1 VIAL SQ SCH ×2 (06:34→16:47)
[2020-04-11] MEDS: LEVOTHYROXINE NA 75 MCG TABLET (FP) GT SCH (06:34)
[2020-04-11] MEDS: FUROSEMIDE 40 MG/5 ML UNIT-DOSE CUP GT SCH (12:32)
[2020-04-11] MEDS: BACITRACIN 15 GM TUBE TOPICAL OINTMENT TP SCH (12:32)
[2020-04-11] MEDS: MULTIVIT-MINERALS ORAL LIQUID GT SCH (12:32)
[2020-04-11] MEDS: DIGOXIN 250 MCG/5 ML LIQUID GT SCH (12:32)
[2020-04-11] MEDS: FERROUS SO4 300 MG/5 ML ORAL SOLN UNIT DOSE CUPS GT SCH (12:32)
[2020-04-11] MEDS: ENOXAPARIN NA (PORCINE) 40 MG/0.4 ML DISP.SYRIN SQ SCH (12:33)
[2020-04-11] MEDS: NYSTATIN 100,000 UNIT/GM TOPICAL CREAM 15 GM TUBE TP SCH (12:33)
[2020-04-11] MEDS: FAMOTIDINE 40 MG/5 ML ORAL SUSPENSION NGT SCH ×2 (12:33→21:10)
[2020-04-11] MEDS: ASCORBIC ACID 500 MG/5 ML UNIT DOSE CUP GT SCH (12:34)
[2020-04-11] MEDS: SILVER SULFADIAZINE 1% TOP CREAM 50 GM JAR TP SCH (12:34)
[2020-04-11] MEDS: CARVEDILOL 6.25 MG TABLET (FP) GT SCH ×2 (12:34→21:10)
[2020-04-11] MEDS: ACETAMINOPHEN 650 MG/20.3 ML ORAL SOLUTION (CUPS) PO PRN ×2 (13:01→22:58)
[2020-04-11] MEDS ORDERED: PT OWN MED DRAWER 7, Y5N ONE (21:06)
[2020-04-12] MEDS: INSULIN (LEVEMIR) 100 UNITS/ML UNITS SQ SCH (06:31)
[2020-04-12] MEDS: INSULIN SLIDING SCALE (NOVOLOG) 1 VIAL SQ SCH ×2 (06:31→21:42)
[2020-04-12] MEDS: LEVOTHYROXINE NA 75 MCG TABLET (FP) GT SCH (06:31)
[2020-04-12] MEDS ORDERED: PT OWN MED DRAWER 7, Y5N ONE (09:13)
[2020-04-12] MEDS: DIGOXIN 250 MCG/5 ML LIQUID GT SCH (09:16)
[2020-04-12] MEDS: FERROUS SO4 300 MG/5 ML ORAL SOLN UNIT DOSE CUPS GT SCH (09:16)
[2020-04-12] MEDS: FAMOTIDINE 40 MG/5 ML ORAL SUSPENSION NGT SCH ×2 (09:17→22:15)
[2020-04-12] MEDS: FUROSEMIDE 40 MG/5 ML UNIT-DOSE CUP GT SCH (09:18)
[2020-04-12] MEDS: ASCORBIC ACID 500 MG/5 ML UNIT DOSE CUP GT SCH (09:18)
[2020-04-12] MEDS: CARVEDILOL 6.25 MG TABLET (FP) GT SCH ×2 (09:19→22:15)
[2020-04-12] MEDS: MULTIVIT-MINERALS ORAL LIQUID GT SCH (09:19)
[2020-04-12] MEDS: ENOXAPARIN NA (PORCINE) 40 MG/0.4 ML DISP.SYRIN SQ SCH (09:29)
[2020-04-12] MEDS: BACITRACIN 15 GM TUBE TOPICAL OINTMENT TP SCH (12:00)
[2020-04-12] MEDS: SILVER SULFADIAZINE 1% TOP CREAM 50 GM JAR TP SCH (12:09)
[2020-04-12] MEDS: NYSTATIN 100,000 UNIT/GM TOPICAL CREAM 15 GM TUBE TP SCH (12:09)
[2020-04-12] MEDS: ACETAMINOPHEN 650 MG/20.3 ML ORAL SOLUTION (CUPS) PO PRN (12:43)
[2020-04-12 14:34] LABS: EPI CELLS 8 /uL (0-25.1); HYALINE CASTS 4 /uL (0-3.1); URINE APPEARANCE CLOUDY; URINE BACTERIA 374 /uL (0-1359); URINE BILIRUBIN NEGATIVE (NEGATIVE); URINE COLOR YELLOW; URINE GLUCOSE (UA) NEGATIVE (NEGATIVE); URINE KETONE NEGATIVE (NEGATIVE); URINE LEUK ESTERASE 3+ (NEGATIVE); URINE NITRITE NEGATIVE (NEGATIVE); URINE PROTEIN TRACE (NEGATIVE); URINE RBC 114 /uL (0-23.9); URINE WBC 1710 /uL (0-25.8)
[2020-04-12] MEDS ORDERED: AMINO ACIDS 4.25%/D5W 1,000 ML IV SCH (19:00)
[2020-04-13] MEDS: INSULIN (LEVEMIR) 100 UNITS/ML UNITS SQ SCH (06:03)
[2020-04-13] MEDS: LEVOTHYROXINE NA 75 MCG TABLET (FP) GT SCH (06:03)
[2020-04-13] MEDS: INSULIN SLIDING SCALE (NOVOLOG) 1 VIAL SQ SCH ×2 (06:03→17:14)
[2020-04-13] MEDS ORDERED: PT OWN MED DRAWER 7, Y5N ONE ×2 (07:53→22:48)
[2020-04-13 09:21] LABS: BASO % 0.6 % (0-2.0); EOS % 1.8 % (0-4.5); HEMATOCRIT 35.9 % (32.4-45.2); HEMOGLOBIN 11.1 GM/dL (10.7-15.3); LYMPH % 11.9 % (8-40); MCHC 30.8 g/dl (32.0-36.0); MEAN CELL VOLUME 74.6 fl (80-96); MEAN PLT VOLUME 10.4 fl (7.5-11.1); MONO % 9.5 % (3.8-10.2); NEUT % 76.2 % (42.8-82.8); PLATELET COUNT 207 K/MM3 (134-434); RBC 4.81 M/mm3 (3.60-5.2); RDW 19.8 % (11.6-15.6); WHITE BLOOD COUNT 13.4 K/mm3 (4.0-10.0)
[2020-04-13 09:51] LABS: POTASSIUM 3.2 mmol/L (3.5-5.1)
[2020-04-13 09:57] LABS: BLOOD UREA NITROGEN 38.5 mg/dL (7-18)
[2020-04-13 09:58] LABS: CREATININE 0.7 mg/dL (0.55-1.3)
[2020-04-13 10:01] LABS: CALCIUM 9.9 mg/dL (8.5-10.1)
[2020-04-13] MEDS: ACETAMINOPHEN 650 MG/20.3 ML ORAL SOLUTION (CUPS) PO PRN ×2 (11:17→15:52)
[2020-04-13] MEDS: ENOXAPARIN NA (PORCINE) 40 MG/0.4 ML DISP.SYRIN SQ SCH (11:17)
[2020-04-13] MEDS: FAMOTIDINE 40 MG/5 ML ORAL SUSPENSION NGT SCH ×2 (11:18→23:02)
[2020-04-13] MEDS: FUROSEMIDE 40 MG/5 ML UNIT-DOSE CUP GT SCH (11:19)
[2020-04-13] MEDS: DIGOXIN 250 MCG/5 ML LIQUID GT SCH (11:19)
[2020-04-13] MEDS: FERROUS SO4 300 MG/5 ML ORAL SOLN UNIT DOSE CUPS GT SCH (11:19)
[2020-04-13] MEDS: MULTIVIT-MINERALS ORAL LIQUID GT SCH (11:20)
[2020-04-13] MEDS: CARVEDILOL 6.25 MG TABLET (FP) GT SCH ×2 (11:21→23:02)
[2020-04-13] MEDS: ASCORBIC ACID 500 MG/5 ML UNIT DOSE CUP GT SCH (11:32)
[2020-04-13] MEDS: BACITRACIN 15 GM TUBE TOPICAL OINTMENT TP SCH (13:00)
[2020-04-13] MEDS: SILVER SULFADIAZINE 1% TOP CREAM 50 GM JAR TP SCH (13:00)
[2020-04-13] MEDS: NYSTATIN 100,000 UNIT/GM TOPICAL CREAM 15 GM TUBE TP SCH (13:00)
[2020-04-13] MEDS: POTASSIUM CHLORIDE ORAL LIQUID 20 MEQ/15 ML GT SCH ×2 (14:34→23:02)
[2020-04-14] MEDS: POTASSIUM CHLORIDE ORAL LIQUID 20 MEQ/15 ML GT SCH (02:20)
[2020-04-14] MEDS: INSULIN (LEVEMIR) 100 UNITS/ML UNITS SQ SCH (06:01)
[2020-04-14] MEDS: LEVOTHYROXINE NA 75 MCG TABLET (FP) GT SCH (06:03)
[2020-04-14] MEDS ORDERED: INSULIN (NOVOLOG) ASPART 100 UNITS/ML 10ML VIAL ONE (06:06)
[2020-04-14] MEDS: ACETAMINOPHEN 650 MG/20.3 ML ORAL SOLUTION (CUPS) PO PRN ×4 (06:06→23:00)
[2020-04-14] MEDS: INSULIN SLIDING SCALE (NOVOLOG) 1 VIAL SQ SCH ×2 (06:09→17:13)
[2020-04-14] MEDS: ASCORBIC ACID 500 MG/5 ML UNIT DOSE CUP GT SCH (10:43)
[2020-04-14] MEDS: FUROSEMIDE 40 MG/5 ML UNIT-DOSE CUP GT SCH (10:43)
[2020-04-14] MEDS: ENOXAPARIN NA (PORCINE) 40 MG/0.4 ML DISP.SYRIN SQ SCH (10:43)
[2020-04-14] MEDS: FERROUS SO4 300 MG/5 ML ORAL SOLN UNIT DOSE CUPS GT SCH (10:44)
[2020-04-14] MEDS: CARVEDILOL 6.25 MG TABLET (FP) GT SCH ×2 (10:44→22:10)
[2020-04-14] MEDS: BACITRACIN 15 GM TUBE TOPICAL OINTMENT TP SCH (10:44)
[2020-04-14] MEDS: FAMOTIDINE 40 MG/5 ML ORAL SUSPENSION NGT SCH ×2 (10:45→23:00)
[2020-04-14] MEDS: SILVER SULFADIAZINE 1% TOP CREAM 50 GM JAR TP SCH (10:45)
[2020-04-14] MEDS: DIGOXIN 250 MCG/5 ML LIQUID GT SCH (10:45)
[2020-04-14] MEDS: NYSTATIN 100,000 UNIT/GM TOPICAL CREAM 15 GM TUBE TP SCH (10:45)
[2020-04-14] MEDS: MULTIVIT-MINERALS ORAL LIQUID GT SCH (10:46)
[2020-04-14 13:21] LABS: POTASSIUM 3.9 mmol/L (3.5-5.1)
[2020-04-14 13:24] LABS: ALBUMIN 3.2 g/dl (3.4-5.0); BLOOD UREA NITROGEN 39.8 mg/dL (7-18); CALCIUM 9.4 mg/dL (8.5-10.1)
[2020-04-14 13:27] LABS: CREATININE 0.7 mg/dL (0.55-1.3)
[2020-04-14 13:29] LABS: BILIRUBIN,TOTAL 1.2 mg/dL (0.2-1); TOT PROT 8.2 g/dl (6.4-8.2)
[2020-04-14] MEDS ORDERED: PT OWN MED DRAWER 7, Y5N ONE ×2 (21:02→21:51)
[2020-04-15] MEDS: INSULIN SLIDING SCALE (NOVOLOG) 1 VIAL SQ SCH ×2 (06:12→17:12)
[2020-04-15] MEDS: ACETAMINOPHEN 650 MG/20.3 ML ORAL SOLUTION (CUPS) PO PRN ×4 (06:12→21:48)
[2020-04-15] MEDS: LEVOTHYROXINE NA 75 MCG TABLET (FP) GT SCH (06:12)
[2020-04-15] MEDS: INSULIN (LEVEMIR) 100 UNITS/ML UNITS SQ SCH (06:14)
[2020-04-15] MEDS ORDERED: PT OWN MED DRAWER 7, Y5N ONE ×3 (10:03→21:41)
[2020-04-15] MEDS: BACITRACIN 15 GM TUBE TOPICAL OINTMENT TP SCH (10:05)
[2020-04-15] MEDS: ENOXAPARIN NA (PORCINE) 40 MG/0.4 ML DISP.SYRIN SQ SCH (10:05)
[2020-04-15] MEDS: CARVEDILOL 6.25 MG TABLET (FP) GT SCH ×2 (10:05→21:47)
[2020-04-15] MEDS: FERROUS SO4 300 MG/5 ML ORAL SOLN UNIT DOSE CUPS GT SCH (10:05)
[2020-04-15] MEDS: FUROSEMIDE 40 MG/5 ML UNIT-DOSE CUP GT SCH (10:07)
[2020-04-15] MEDS: DIGOXIN 250 MCG/5 ML LIQUID GT SCH (10:07)
[2020-04-15] MEDS: ASCORBIC ACID 500 MG/5 ML UNIT DOSE CUP GT SCH (10:07)
[2020-04-15] MEDS: FAMOTIDINE 40 MG/5 ML ORAL SUSPENSION NGT SCH ×2 (10:08→21:48)
[2020-04-15] MEDS: SILVER SULFADIAZINE 1% TOP CREAM 50 GM JAR TP SCH (10:08)
[2020-04-15] MEDS: MULTIVIT-MINERALS ORAL LIQUID GT SCH (10:08)
[2020-04-15] MEDS: NYSTATIN 100,000 UNIT/GM TOPICAL CREAM 15 GM TUBE TP SCH (10:08)
[2020-04-15] MEDS ORDERED: INSULIN (NOVOLOG) ASPART 100 UNITS/ML 10ML VIAL ONE (17:08)
[2020-04-16] MEDS: INSULIN (LEVEMIR) 100 UNITS/ML UNITS SQ SCH (06:49)
[2020-04-16] MEDS: INSULIN SLIDING SCALE (NOVOLOG) 1 VIAL SQ SCH ×2 (06:50→18:00)
[2020-04-16] MEDS: LEVOTHYROXINE NA 75 MCG TABLET (FP) GT SCH (06:52)
[2020-04-16] MEDS ORDERED: PT OWN MED DRAWER 7, Y5N ONE ×2 (09:48→22:50)
[2020-04-16] MEDS: ACETAMINOPHEN 650 MG/20.3 ML ORAL SOLUTION (CUPS) PO PRN ×3 (10:06→22:53)
[2020-04-16] MEDS: CARVEDILOL 6.25 MG TABLET (FP) GT SCH ×2 (10:06→22:54)
[2020-04-16] MEDS: ENOXAPARIN NA (PORCINE) 40 MG/0.4 ML DISP.SYRIN SQ SCH (10:06)
[2020-04-16] MEDS: MULTIVIT-MINERALS ORAL LIQUID GT SCH (10:07)
[2020-04-16] MEDS: BACITRACIN 15 GM TUBE TOPICAL OINTMENT TP SCH (10:07)
[2020-04-16] MEDS: SILVER SULFADIAZINE 1% TOP CREAM 50 GM JAR TP SCH (10:07)
[2020-04-16] MEDS: FUROSEMIDE 40 MG/5 ML UNIT-DOSE CUP GT SCH (10:07)
[2020-04-16] MEDS: ASCORBIC ACID 500 MG/5 ML UNIT DOSE CUP GT SCH (10:07)
[2020-04-16] MEDS: FERROUS SO4 300 MG/5 ML ORAL SOLN UNIT DOSE CUPS GT SCH (10:08)
[2020-04-16] MEDS: NYSTATIN 100,000 UNIT/GM TOPICAL CREAM 15 GM TUBE TP SCH (10:09)
[2020-04-16] MEDS: DIGOXIN 250 MCG/5 ML LIQUID GT SCH (10:09)
[2020-04-16] MEDS: FAMOTIDINE 40 MG/5 ML ORAL SUSPENSION NGT SCH ×2 (10:09→22:54)
[2020-04-16] MEDS ORDERED: VANCOMYCIN 1 GRAM (PRE-DOCKED) 1,000 MG/250 ML BAG IVPB ONE (20:21)
[2020-04-16] MEDS ORDERED: PIPERACILLIN/TAZOBACTAM 3.375 GM VIAL IVPB ONE (23:22)
[2020-04-16] MEDS ORDERED: DEXTROSE 5%-WATER - 50 ML IVPB ONE (23:23)
[2020-04-16] MEDS: PIPERACILLIN/TAZOB 3.375 GM 3.375 GM in DEXTROSE 5%-WATER - 50 ML IVPB SCH (23:35)
[2020-04-17] MEDS ORDERED: PIPERACILLIN/TAZOBACTAM 3.375 GM VIAL IVPB ONE ×2 (03:06→09:38)
[2020-04-17] MEDS ORDERED: DEXTROSE 5%-WATER - 50 ML IVPB ONE ×2 (03:06→09:38)
[2020-04-17] MEDS: PIPERACILLIN/TAZOB 3.375 GM 3.375 GM in DEXTROSE 5%-WATER - 50 ML IVPB SCH ×2 (03:27→10:29)
[2020-04-17] MEDS: INSULIN (LEVEMIR) 100 UNITS/ML UNITS SQ SCH (06:41)
[2020-04-17] MEDS: LEVOTHYROXINE NA 75 MCG TABLET (FP) GT SCH (06:41)
[2020-04-17] MEDS: INSULIN SLIDING SCALE (NOVOLOG) 1 VIAL SQ SCH ×2 (06:43→16:23)
[2020-04-17 09:18] LABS: HEMATOCRIT 33.9 % (32.4-45.2); HEMOGLOBIN 10.4 GM/dL (10.7-15.3); MCH 23.1 pg (25.7-33.7); MCHC 30.7 g/dl (32.0-36.0); MEAN CELL VOLUME 75.3 fl (80-96); MEAN PLT VOLUME 12.2 fl (7.5-11.1); PLATELET COUNT 126 K/MM3 (134-434); RBC 4.51 M/mm3 (3.60-5.2); RDW 20.4 % (11.6-15.6); WHITE BLOOD COUNT 10.5 K/mm3 (4.0-10.0)
[2020-04-17 09:34] LABS: CALCIUM 9.1 mg/dL (8.5-10.1)
[2020-04-17 09:35] LABS: BLOOD UREA NITROGEN 39.3 mg/dL (7-18)
[2020-04-17 09:36] LABS: ALBUMIN 2.9 g/dl (3.4-5.0)
[2020-04-17 09:37] LABS: CREATININE 0.7 mg/dL (0.55-1.3)
[2020-04-17] MEDS ORDERED: PT OWN MED DRAWER 7, Y5N ONE ×5 (09:38→22:08)
[2020-04-17 09:39] LABS: BILIRUBIN,TOTAL 0.9 mg/dL (0.2-1); TOT PROT 7.5 g/dl (6.4-8.2)
[2020-04-17 10:13] LABS: POTASSIUM 2.9 mmol/L (3.5-5.1)
[2020-04-17] MEDS: FERROUS SO4 300 MG/5 ML ORAL SOLN UNIT DOSE CUPS GT SCH (10:27)
[2020-04-17] MEDS: ASCORBIC ACID 500 MG/5 ML UNIT DOSE CUP GT SCH (10:27)
[2020-04-17] MEDS: DIGOXIN 250 MCG/5 ML LIQUID GT SCH (10:27)
[2020-04-17] MEDS: FAMOTIDINE 40 MG/5 ML ORAL SUSPENSION NGT SCH ×2 (10:27→22:12)
[2020-04-17] MEDS: BACITRACIN 15 GM TUBE TOPICAL OINTMENT TP SCH (10:28)
[2020-04-17] MEDS: MULTIVIT-MINERALS ORAL LIQUID GT SCH (10:28)
[2020-04-17] MEDS: NYSTATIN 100,000 UNIT/GM TOPICAL CREAM 15 GM TUBE TP SCH (10:29)
[2020-04-17] MEDS: SILVER SULFADIAZINE 1% TOP CREAM 50 GM JAR TP SCH (10:29)
[2020-04-17] MEDS: FUROSEMIDE 40 MG/5 ML UNIT-DOSE CUP GT SCH (16:04)
[2020-04-17] MEDS: POTASSIUM CHLORIDE ORAL LIQUID 20 MEQ/15 ML PEG SCH ×2 (16:05→22:12)
[2020-04-17] MEDS: CARVEDILOL 6.25 MG TABLET (FP) GT SCH ×2 (16:06→22:12)
[2020-04-17] MEDS ORDERED: DEXTROSE 5%-WATER 100 ML IVPB ONE (18:12)
[2020-04-17] MEDS ORDERED: MEROPENEM 1 GM VIAL (RESTRICTED TO ID) IVPB ONE (18:12)
[2020-04-17] MEDS: MEROPENEM 1 GM in DEXTROSE 5%-WATER 100 ML IVPB SCH (18:22)
[2020-04-17] MEDS: ACETAMINOPHEN 650 MG/20.3 ML ORAL SOLUTION (CUPS) PO PRN (22:17)
[2020-04-18] MEDS ORDERED: MEROPENEM 1 GM VIAL (RESTRICTED TO ID) IVPB ONE ×3 (01:21→17:07)
[2020-04-18] MEDS ORDERED: DEXTROSE 5%-WATER 100 ML IVPB ONE ×3 (01:21→17:07)
[2020-04-18] MEDS: MEROPENEM 1 GM in DEXTROSE 5%-WATER 100 ML IVPB SCH ×3 (02:26→17:33)
[2020-04-18] MEDS: INSULIN SLIDING SCALE (NOVOLOG) 1 VIAL SQ SCH ×2 (06:04→17:33)
[2020-04-18] MEDS: INSULIN (LEVEMIR) 100 UNITS/ML UNITS SQ SCH (06:05)
[2020-04-18] MEDS: LEVOTHYROXINE NA 75 MCG TABLET (FP) GT SCH (06:07)
[2020-04-18] MEDS: BACITRACIN 15 GM TUBE TOPICAL OINTMENT TP SCH (11:06)
[2020-04-18] MEDS: FERROUS SO4 300 MG/5 ML ORAL SOLN UNIT DOSE CUPS GT SCH (11:06)
[2020-04-18] MEDS: POTASSIUM CHLORIDE ORAL LIQUID 20 MEQ/15 ML PEG SCH ×2 (11:06→23:36)
[2020-04-18] MEDS: CARVEDILOL 6.25 MG TABLET (FP) GT SCH ×2 (11:07→23:36)
[2020-04-18] MEDS: FAMOTIDINE 40 MG/5 ML ORAL SUSPENSION NGT SCH ×2 (11:08→23:37)
[2020-04-18] MEDS: NYSTATIN 100,000 UNIT/GM TOPICAL CREAM 15 GM TUBE TP SCH (11:08)
[2020-04-18] MEDS: DIGOXIN 250 MCG/5 ML LIQUID GT SCH (11:09)
[2020-04-18] MEDS: ASCORBIC ACID 500 MG/5 ML UNIT DOSE CUP GT SCH (11:09)
[2020-04-18] MEDS: MULTIVIT-MINERALS ORAL LIQUID GT SCH (11:09)
[2020-04-18] MEDS: FUROSEMIDE 40 MG/5 ML UNIT-DOSE CUP GT SCH (11:10)
[2020-04-18] MEDS: SILVER SULFADIAZINE 1% TOP CREAM 50 GM JAR TP SCH (11:10)
[2020-04-18] MEDS ORDERED: PT OWN MED DRAWER 7, Y5N ONE (14:41)
[2020-04-19] MEDS ORDERED: MEROPENEM 1 GM VIAL (RESTRICTED TO ID) IVPB ONE ×3 (01:17→17:05)
[2020-04-19] MEDS ORDERED: DEXTROSE 5%-WATER 100 ML IVPB ONE ×3 (01:17→17:05)
[2020-04-19] MEDS: MEROPENEM 1 GM in DEXTROSE 5%-WATER 100 ML IVPB SCH ×3 (03:06→17:13)
[2020-04-19] MEDS: INSULIN (LEVEMIR) 100 UNITS/ML UNITS SQ SCH ×2 (06:44→21:46)
[2020-04-19] MEDS: LEVOTHYROXINE NA 75 MCG TABLET (FP) GT SCH (06:45)
[2020-04-19] MEDS: INSULIN SLIDING SCALE (NOVOLOG) 1 VIAL SQ SCH ×2 (06:45→16:48)
[2020-04-19 10:36] LABS: POTASSIUM 4.1 mmol/L (3.5-5.1)
[2020-04-19 10:38] LABS: CALCIUM 9.7 mg/dL (8.5-10.1)
[2020-04-19 10:39] LABS: ALBUMIN 2.8 g/dl (3.4-5.0); BLOOD UREA NITROGEN 35.8 mg/dL (7-18)
[2020-04-19 10:41] LABS: CREATININE 0.6 mg/dL (0.55-1.3)
[2020-04-19 10:43] LABS: BILIRUBIN,TOTAL 0.8 mg/dL (0.2-1); TOT PROT 7.3 g/dl (6.4-8.2)
[2020-04-19] MEDS: CARVEDILOL 6.25 MG TABLET (FP) GT SCH ×2 (11:13→21:45)
[2020-04-19] MEDS: FERROUS SO4 300 MG/5 ML ORAL SOLN UNIT DOSE CUPS GT SCH (11:13)
[2020-04-19] MEDS: FAMOTIDINE 40 MG/5 ML ORAL SUSPENSION NGT SCH ×2 (11:19→21:46)
[2020-04-19] MEDS: FUROSEMIDE 40 MG/5 ML UNIT-DOSE CUP GT SCH (11:19)
[2020-04-19] MEDS: DIGOXIN 250 MCG/5 ML LIQUID GT SCH (11:19)
[2020-04-19] MEDS: MULTIVIT-MINERALS ORAL LIQUID GT SCH (11:19)
[2020-04-19] MEDS: ASCORBIC ACID 500 MG/5 ML UNIT DOSE CUP GT SCH (11:19)
[2020-04-19] MEDS: BACITRACIN 15 GM TUBE TOPICAL OINTMENT TP SCH (11:19)
[2020-04-19] MEDS: NYSTATIN 100,000 UNIT/GM TOPICAL CREAM 15 GM TUBE TP SCH (11:20)
[2020-04-19] MEDS: SILVER SULFADIAZINE 1% TOP CREAM 50 GM JAR TP SCH (11:20)
[2020-04-19] MEDS ORDERED: PT OWN MED DRAWER 7, Y5N ONE (18:02)
[2020-04-20] MEDS ORDERED: MEROPENEM 1 GM VIAL (RESTRICTED TO ID) IVPB ONE ×3 (01:37→18:19)
[2020-04-20] MEDS ORDERED: DEXTROSE 5%-WATER 100 ML IVPB ONE ×3 (01:37→18:19)
[2020-04-20] MEDS: MEROPENEM 1 GM in DEXTROSE 5%-WATER 100 ML IVPB SCH ×3 (01:56→18:21)
[2020-04-20] MEDS: LEVOTHYROXINE NA 75 MCG TABLET (FP) GT SCH (06:15)
[2020-04-20] MEDS: INSULIN SLIDING SCALE (NOVOLOG) 1 VIAL SQ SCH ×2 (06:15→16:52)
[2020-04-20] MEDS: INSULIN (LEVEMIR) 100 UNITS/ML UNITS SQ SCH ×2 (06:16→23:52)
[2020-04-20] MEDS ORDERED: INSULIN (NOVOLOG) ASPART 100 UNITS/ML 10ML VIAL ONE (06:30)
[2020-04-20] MEDS ORDERED: glipiZIDE 5 MG TABLET (FP) GT SCH (07:00)
[2020-04-20] MEDS ORDERED: PT OWN MED DRAWER 7, Y5N ONE ×4 (08:17→23:40)
[2020-04-20] MEDS: BACITRACIN 15 GM TUBE TOPICAL OINTMENT TP SCH (10:21)
[2020-04-20] MEDS: MULTIVIT-MINERALS ORAL LIQUID GT SCH (10:22)
[2020-04-20] MEDS: CARVEDILOL 6.25 MG TABLET (FP) GT SCH ×2 (10:25→23:52)
[2020-04-20] MEDS: FERROUS SO4 300 MG/5 ML ORAL SOLN UNIT DOSE CUPS GT SCH (10:25)
[2020-04-20] MEDS: DIGOXIN 250 MCG/5 ML LIQUID GT SCH (10:25)
[2020-04-20] MEDS: NYSTATIN 100,000 UNIT/GM TOPICAL CREAM 15 GM TUBE TP SCH (10:26)
[2020-04-20] MEDS: FUROSEMIDE 40 MG/5 ML UNIT-DOSE CUP GT SCH (10:26)
[2020-04-20] MEDS: SILVER SULFADIAZINE 1% TOP CREAM 50 GM JAR TP SCH (10:27)
[2020-04-20] MEDS: FAMOTIDINE 40 MG/5 ML ORAL SUSPENSION NGT SCH ×2 (10:27→23:52)
[2020-04-20] MEDS: ASCORBIC ACID 500 MG/5 ML UNIT DOSE CUP GT SCH (10:30)
[2020-04-20] MEDS: glipiZIDE 5 MG TABLET (FP) PO SCH (16:47)
[2020-04-21] MEDS ORDERED: DEXTROSE 5%-WATER 100 ML IVPB ONE ×3 (02:57→17:15)
[2020-04-21] MEDS ORDERED: MEROPENEM 1 GM VIAL (RESTRICTED TO ID) IVPB ONE ×3 (02:57→17:14)
[2020-04-21] MEDS: MEROPENEM 1 GM in DEXTROSE 5%-WATER 100 ML IVPB SCH ×3 (03:35→17:20)
[2020-04-21] MEDS: INSULIN (LEVEMIR) 100 UNITS/ML UNITS SQ SCH ×2 (06:25→21:56)
[2020-04-21] MEDS: LEVOTHYROXINE NA 75 MCG TABLET (FP) GT SCH (06:25)
[2020-04-21] MEDS: glipiZIDE 5 MG TABLET (FP) PO SCH ×2 (06:25→16:50)
[2020-04-21] MEDS: INSULIN SLIDING SCALE (NOVOLOG) 1 VIAL SQ SCH ×2 (06:26→16:51)
[2020-04-21] MEDS ORDERED: PT OWN MED DRAWER 7, Y5N ONE ×3 (10:30→21:55)
[2020-04-21] MEDS: ASCORBIC ACID 500 MG/5 ML UNIT DOSE CUP GT SCH (10:54)
[2020-04-21] MEDS: FERROUS SO4 300 MG/5 ML ORAL SOLN UNIT DOSE CUPS GT SCH (10:54)
[2020-04-21] MEDS: CARVEDILOL 6.25 MG TABLET (FP) GT SCH ×2 (10:54→21:50)
[2020-04-21] MEDS: MULTIVIT-MINERALS ORAL LIQUID GT SCH (10:55)
[2020-04-21] MEDS: DIGOXIN 250 MCG/5 ML LIQUID GT SCH (10:56)
[2020-04-21] MEDS: FUROSEMIDE 40 MG/5 ML UNIT-DOSE CUP GT SCH (10:57)
[2020-04-21] MEDS: FAMOTIDINE 40 MG/5 ML ORAL SUSPENSION NGT SCH ×2 (10:58→21:57)
[2020-04-21] MEDS: BACITRACIN 15 GM TUBE TOPICAL OINTMENT TP SCH (12:00)
[2020-04-21] MEDS: SILVER SULFADIAZINE 1% TOP CREAM 50 GM JAR TP SCH (12:00)
[2020-04-21] MEDS: NYSTATIN 100,000 UNIT/GM TOPICAL CREAM 15 GM TUBE TP SCH (12:00)
[2020-04-22] MEDS ORDERED: MEROPENEM 1 GM VIAL (RESTRICTED TO ID) IVPB ONE ×2 (02:38→11:16)
[2020-04-22] MEDS ORDERED: DEXTROSE 5%-WATER 100 ML IVPB ONE ×2 (02:39→11:16)
[2020-04-22] MEDS: MEROPENEM 1 GM in DEXTROSE 5%-WATER 100 ML IVPB SCH ×2 (02:46→11:24)
[2020-04-22] MEDS: INSULIN (LEVEMIR) 100 UNITS/ML UNITS SQ SCH ×2 (06:00→21:16)
[2020-04-22] MEDS: LEVOTHYROXINE NA 75 MCG TABLET (FP) GT SCH (06:00)
[2020-04-22] MEDS: glipiZIDE 5 MG TABLET (FP) PO SCH ×2 (06:00→18:02)
[2020-04-22] MEDS: INSULIN SLIDING SCALE (NOVOLOG) 1 VIAL SQ SCH ×2 (06:01→18:02)
[2020-04-22] MEDS ORDERED: PT OWN MED DRAWER 7, Y5N ONE ×2 (11:16→11:22)
[2020-04-22] MEDS: BACITRACIN 15 GM TUBE TOPICAL OINTMENT TP SCH (11:24)
[2020-04-22] MEDS: CARVEDILOL 6.25 MG TABLET (FP) GT SCH ×2 (11:25→21:16)
[2020-04-22] MEDS: FAMOTIDINE 40 MG/5 ML ORAL SUSPENSION NGT SCH ×2 (11:26→21:16)
[2020-04-22] MEDS: SILVER SULFADIAZINE 1% TOP CREAM 50 GM JAR TP SCH (11:26)
[2020-04-22] MEDS: FUROSEMIDE 40 MG/5 ML UNIT-DOSE CUP GT SCH (11:27)
[2020-04-22] MEDS: ASCORBIC ACID 500 MG/5 ML UNIT DOSE CUP GT SCH (11:29)
[2020-04-22] MEDS: NYSTATIN 100,000 UNIT/GM TOPICAL CREAM 15 GM TUBE TP SCH (11:29)
[2020-04-22] MEDS: MULTIVIT-MINERALS ORAL LIQUID GT SCH (11:30)
[2020-04-22] MEDS: DIGOXIN 250 MCG/5 ML LIQUID GT SCH (11:30)
[2020-04-22] MEDS: FERROUS SO4 300 MG/5 ML ORAL SOLN UNIT DOSE CUPS GT SCH (12:55)
[2020-04-23] MEDS: INSULIN SLIDING SCALE (NOVOLOG) 1 VIAL SQ SCH (06:00)
[2020-04-23] MEDS: INSULIN (LEVEMIR) 100 UNITS/ML UNITS SQ SCH (06:00)
[2020-04-23] MEDS: glipiZIDE 5 MG TABLET (FP) PO SCH (06:00)
[2020-04-23] MEDS: LEVOTHYROXINE NA 75 MCG TABLET (FP) GT SCH (06:00)
[2020-04-23 08:31] VITALS: BP 114/41; PULSE 60; TEMP 97
[2020-04-23] MEDS ORDERED: PT OWN MED DRAWER 7, Y5N ONE ×2 (09:35→10:05)
[2020-04-23] MEDS: FERROUS SO4 300 MG/5 ML ORAL SOLN UNIT DOSE CUPS GT SCH (09:48)
[2020-04-23] MEDS: ASCORBIC ACID 500 MG/5 ML UNIT DOSE CUP GT SCH (09:48)
[2020-04-23] MEDS: MULTIVIT-MINERALS ORAL LIQUID GT SCH (09:49)
[2020-04-23] MEDS: FAMOTIDINE 40 MG/5 ML ORAL SUSPENSION NGT SCH (09:50)
[2020-04-23] MEDS: DIGOXIN 250 MCG/5 ML LIQUID GT SCH (09:50)
[2020-04-23] MEDS: BACITRACIN 15 GM TUBE TOPICAL OINTMENT TP SCH (12:00)
[2020-04-23] MEDS: NYSTATIN 100,000 UNIT/GM TOPICAL CREAM 15 GM TUBE TP SCH (12:00)
[2020-04-23] MEDS: SILVER SULFADIAZINE 1% TOP CREAM 50 GM JAR TP SCH (12:00)
== END 2020-04-23 12:42 | disposition home or self-care (01) | DRG 870 ==
LOC: JER 04:28 → JERBED 06:09 → J5S 03-22 10:35
PROVIDERS: ADMIT Internal Medicine; ATTEND Internal Medicine
PROC: 5A1955Z Respiratory Ventilation, Greater than 96 Consecutive Hours (ICD-10-PCS; 2020-03-21)
PROC: 3E0G76Z Introduction of Nutritional Substance into Upper GI, Via Natural or Artificial Opening (ICD-10-PCS; principal; 2020-03-26)
PROC: 0D20XUZ Change Feeding Device in Upper Intestinal Tract, External Approach (ICD-10-PCS; 2020-03-31)
DX: A41.89 Other specified sepsis (principal); J96.21 Acute and chronic respiratory failure with hypoxia; J18.9 Pneumonia, unspecified organism; K94.22 Gastrostomy infection; R64 Cachexia; N39.0 Urinary tract infection, site not specified; G93.1 Anoxic brain damage, not elsewhere classified; L03.811 Cellulitis of head [any part, except face]; K56.7 Ileus, unspecified; K94.23 Gastrostomy malfunction; I25.10 Atherosclerotic heart disease of native coronary artery without angina pectoris; I48.91 Unspecified atrial fibrillation; I44.7 Left bundle-branch block, unspecified; E11.9 Type 2 diabetes mellitus without complications; I11.0 Hypertensive heart disease with heart failure; I50.9 Heart failure, unspecified; Y83.9 Surgical procedure, unspecified as the cause of abnormal reaction of the patient, or of later complication, without mention of misadventure at the time of the procedure; K59.01 Slow transit constipation; L89.152 Pressure ulcer of sacral region, stage 2; L98.8 Other specified disorders of the skin and subcutaneous tissue; D72.829 Elevated white blood cell count, unspecified; Z68.25 Body mass index [BMI] 25.0-25.9, adult; D64.9 Anemia, unspecified; L89.150 Pressure ulcer of sacral region, unstageable; L89.201 Pressure ulcer of unspecified hip, stage 1; L89.621 Pressure ulcer of left heel, stage 1; L89.322 Pressure ulcer of left buttock, stage 2; Z93.0 Tracheostomy status; Z79.01 Long term (current) use of anticoagulants; Z95.1 Presence of aortocoronary bypass graft
CPT/HCPCS: 36415; 36600; 71045-TC-FY; 74018-TC-FY; 74021-TC-FY; 74246-TC-FY; 80048; 80053; 80162; 81003; 82306; 82607; 82803; 82962; 83605; 83735; 84100; 84436; 84443; 84484; 85025; 85027; 85610; 85730; 87040; 87070; 87077; 87086; 87186; 87205; 87804; 93005; 93010; 94002; 94640; 99285-25; C9803; J0131; U0003

== ENCOUNTER 2021-10-12 22:31 | Inpatient (IN) | payer OTHER ==
[2021-10-12] MEDS ORDERED: VANCOMYCIN 1 GM in D5W (PRE-DOCKED) 1,000 MG/250 ML IVPB ONE (23:14)
[2021-10-12] MEDS ORDERED: PIPERACILLIN/TAZOB 4.5 GM 4.5 GM in DEXTROSE 5%-WATER 100 ML IVPB ONE (23:14)
[2021-10-13] MEDS ORDERED: VANCOMYCIN/WATER FOR INJ (PEG) 1,000 MG/200 ML BAG IVPB ONE (00:22)
[2021-10-13] MEDS ORDERED: PIPERACILLIN/TAZOB 4.5 GM 4.5 GM/100 ML BAG IVPB ONE (00:22)
[2021-10-13] MEDS ORDERED: FUROSEMIDE 40 MG/4 ML INJECTABLE VIAL IVPUSH ONE (00:35)
[2021-10-13] MEDS ORDERED: FUROSEMIDE 40 MG/4 ML INJECTABLE VIAL ONE (00:42)
[2021-10-13 00:45] LABS: BASO % 0.3 % (0-2.0); EOS % 0.3 % (0-4.5); HEMATOCRIT 30.1 % (32.4-45.2); HEMOGLOBIN 9.1 GM/dL (10.7-15.3); LYMPH % 5.3 % (8-40); MCHC 30.4 g/dl (32.0-36.0); MEAN CELL VOLUME 69.1 fl (80-96); MEAN PLT VOLUME 8.6 fl (7.5-11.1); MONO % 4.6 % (3.8-10.2); NEUT % 89.5 % (42.8-82.8); PLATELET COUNT 375 10^3/uL (134-434); RBC 4.35 M/mm3 (3.60-5.2); RDW 17.7 % (11.6-15.6); WHITE BLOOD COUNT 18.9 K/mm3 (4.0-10.0)
[2021-10-13 01:16] LABS: CHLORIDE 95 mmol/L (98-107); SODIUM 140 mmol/L (136-145)
[2021-10-13 01:18] LABS: ALBUMIN 2.7 g/dl (3.4-5.0); ANION GAP 3 MMOL/L (8-16); BLOOD UREA NITROGEN 33.7 mg/dL (7-18); CALCIUM 9.1 mg/dL (8.5-10.1); CO2 42 mmol/L (21-32)
[2021-10-13 01:19] LABS: GLUCOSE,RANDOM 124 mg/dL (74-106)
[2021-10-13 01:22] LABS: CREATININE 0.3 mg/dL (0.55-1.3); SGOT/AST 30 U/L (15-37); SGPT/ALT 18 U/L (13-61)
[2021-10-13 01:23] LABS: BILIRUBIN,TOTAL 0.6 mg/dL (0.2-1); TOT PROT 7.6 g/dl (6.4-8.2)
[2021-10-13 01:24] LABS: ALK PHOS 119 U/L (45-117)
[2021-10-13 03:31] LABS: BASO % 0.2 % (0-2.0); EOS % 0.1 % (0-4.5); HEMATOCRIT 28.5 % (32.4-45.2); HEMOGLOBIN 8.6 GM/dL (10.7-15.3); LYMPH % 6.2 % (8-40); MCH 20.8 pg (25.7-33.7); MCHC 30.1 g/dl (32.0-36.0); MEAN CELL VOLUME 69.3 fl (80-96); MEAN PLT VOLUME 7.6 fl (7.5-11.1); MONO % 3.7 % (3.8-10.2); NEUT % 89.8 % (42.8-82.8); PLATELET COUNT 282 10^3/uL (134-434); RBC 4.11 M/mm3 (3.60-5.2); RDW 17.6 % (11.6-15.6); WHITE BLOOD COUNT 14.6 K/mm3 (4.0-10.0)
[2021-10-13 03:38] LABS: N-TERMINAL BNP 16540.6 pg/ml (5-125)
[2021-10-13 03:38] LABS: INR 1.45 (0.83-1.09); PROTHROMBIN TIME (PATIENT) 16.7 SEC (9.7-13.0); VENOUS BASE EXCESS 13.7 mmol/L (-2-2); VENOUS O2 SATURATION 42.5 % (70-80); VENOUS PH 7.297 (7.310-7.410)
[2021-10-13 03:41] LABS: ACTIVATED PTT 28.8 SECONDS (25.2-36.5)
[2021-10-13 03:48] LABS: VENOUS PCO2 89.8 mmHg (38-52)
[2021-10-13 03:59] LABS: LACTIC ACID 2.8 mmol/L (0.4-2.0)
[2021-10-13 04:00] LABS: EPI CELLS 4 /uL (0-25.1); HYALINE CASTS 5 /uL (0-3.1); URINE APPEARANCE CLOUDY; URINE BACTERIA 309 /uL (0-1359); URINE BILIRUBIN NEGATIVE (NEGATIVE); URINE COLOR YELLOW; URINE GLUCOSE (UA) NEGATIVE (NEGATIVE); URINE KETONE NEGATIVE (NEGATIVE); URINE LEUK ESTERASE 3+ (NEGATIVE); URINE NITRITE NEGATIVE (NEGATIVE); URINE PROTEIN NEGATIVE (NEGATIVE); URINE RBC 13 /uL (0-23.9); URINE UROBILINOGEN 0.2 mg/dL (0.2-1.0); URINE WBC 319 /uL (0-25.8)
[2021-10-13 05:28] LABS: ANISOCYTOSIS 3+; MACROCYTOSIS 0; ROULEAU 1+
[2021-10-13 06:11] VITALS: BMI 18.6
[2021-10-13] MEDS: INSULIN SLIDING SCALE (NOVOLOG) 1 VIAL SQ SCH ×3 (07:00→17:00)
[2021-10-13 08:52] LABS: MAGNESIUM 1.4 mg/dL (1.8-2.4)
[2021-10-13] MEDS ORDERED: PIPERACILLIN/TAZOB 3.375 GM 3.375 GM in DEXTROSE 5%-WATER - 50 ML IVPB SCH (09:00)
[2021-10-13] MEDS ORDERED: PIPERACILLIN/TAZOBACTAM 3.375 GM VIAL IVPB ONE ×3 (09:14→17:57)
[2021-10-13] MEDS ORDERED: DEXTROSE 5%-WATER - 50 ML IVPB ONE ×3 (09:15→17:57)
[2021-10-13] MEDS: PIPERACILLIN/TAZOB 3.375 GM 3.375 GM in DEXTROSE 5%-WATER - 50 ML IVPB SCH ×3 (09:24→18:30)
[2021-10-13] MEDS ORDERED: ATROPINE SULFATE 1 MG/10 ML DISP.SYRIN IVPUSH ONE (09:47)
[2021-10-13] MEDS ORDERED: PANTOPRAZOLE 40 MG TABLET PO SCH (10:30)
[2021-10-13] MEDS ORDERED: RAMIPRIL 2.5 MG CAPSULE PO SCH (10:30)
[2021-10-13] MEDS ORDERED: SODIUM CHLORIDE 1,000 ML IV STA (10:56)
[2021-10-13 12:06] LABS: MAGNESIUM 1.3 mg/dL (1.8-2.4)
[2021-10-13 12:10] LABS: PHOSPHOROUS 2.4 mg/dL (2.5-4.9)
[2021-10-13] MEDS ORDERED: SODIUM CHLORIDE 500 ML IV STA (12:24)
[2021-10-13] MEDS ORDERED: VANCOMYCIN/WATER FOR INJ (PEG) 750 MG/150 ML BAG IVPB SCH ×2 (14:00)
[2021-10-13] MEDS ORDERED: MAGNESIUM SULF 50% (8.12 MEQ/2 ML-1 GM VIAL) IVPB ONE (14:27)
[2021-10-13] MEDS ORDERED: DOPAMINE 400 MG/D5W - 400,000 MCG/250 ML INFUS.BAG IVPB SCH ×2 (15:00→19:32)
[2021-10-13] MEDS ORDERED: DOPAMINE 400 MG/D5W - 400,000 MCG/250 ML INFUS.BAG IVPB ONE (15:00)
[2021-10-13] MEDS ORDERED: MAGNESIUM SULFATE 4GM/100CC IN STERILE WATER IVPB ONE (15:30)
[2021-10-13 17:42] LABS: ARTERIAL BLD GAS O2 SATURATION 93.4 % (95-98); ARTERIAL BLOOD GAS BASE EXCESS 17.9 mmol/L (-2-2); ARTERIAL BLOOD GAS PO2 61.5 mmHg (80-100); ARTERIAL BLOOD GAS pH 7.526 (7.350-7.450)
[2021-10-13] MEDS ORDERED: FUROSEMIDE 40 MG/4 ML INJECTABLE VIAL IVPUSH SCH (17:45)
[2021-10-13 17:47] LABS: ALLENS TEST POSITIVE; VENT RATE 14
[2021-10-13] MEDS ORDERED: SODIUM CHLORIDE 250 ML IV STA (19:59)
[2021-10-13] MEDS ORDERED: WARFARIN NA 1 MG TABLET PO SCH (20:45)
[2021-10-13] MEDS ORDERED: MUPIROCIN 2% TOPICAL OINTMENT FOR DECOLONIZATION NS SCH (22:00)
[2021-10-13] MEDS ORDERED: INSULIN SLIDING SCALE (NOVOLOG) 1 VIAL SQ SCH (22:00)
[2021-10-13] MEDS ORDERED: CHLORHEXIDINE GLUCONATE 4% CLEANSER FOR DECOLONIZATION TP SCH (22:00)
[2021-10-14] MEDS ORDERED: SODIUM CHLORIDE 0.9% 500 ML INFUS.BAG IV ONE (00:23)
[2021-10-14] MEDS ORDERED: DEXTROSE 5%-WATER - 50 ML IVPB ONE (01:13)
[2021-10-14] MEDS ORDERED: PIPERACILLIN/TAZOBACTAM 3.375 GM VIAL IVPB ONE (01:13)
[2021-10-14] MEDS: PIPERACILLIN/TAZOB 3.375 GM 3.375 GM in DEXTROSE 5%-WATER - 50 ML IVPB SCH (01:18)
[2021-10-14 01:52] VITALS: TEMP 98.2
[2021-10-14] MEDS ORDERED: VANCOMYCIN/WATER FOR INJ (PEG) 750 MG/150 ML BAG IVPB SCH (02:00)
[2021-10-14 02:14] VITALS: BP 88/46; PULSE 82
[2021-10-14 03:13] VITALS: RESP 16
[2021-10-14] MEDS ORDERED: VASOPRESSIN 20 UNITS/ML VIAL IV ONE (04:01)
[2021-10-14] MEDS ORDERED: NOREPINEPHRINE BITARTRATE 4 MG/4 ML ML IV ONE (04:31)
[2021-10-14] MEDS ORDERED: EPINEPHrine 1:10,000 (P-F SYR) 1 MG/10 ML DISP.SYRIN ONE (04:37)
[2021-10-14] MEDS ORDERED: PANTOPRAZOLE 40 MG TABLET PO SCH (10:00)
== END 2021-10-14 06:35 | disposition expired | DRG 871 ==
LOC: JER 22:31 → JERBED 10-13 01:54 → J2W 10-13 04:16 → JICU 10-13 15:31
PROVIDERS: ADMIT Internal Medicine; ATTEND Internal Medicine
PROC: 5A1945Z Respiratory Ventilation, 24-96 Consecutive Hours (ICD-10-PCS; principal; 2021-10-12)
DX: A41.9 Sepsis, unspecified organism (principal); I50.23 Acute on chronic systolic (congestive) heart failure; J96.21 Acute and chronic respiratory failure with hypoxia; J18.9 Pneumonia, unspecified organism; J96.22 Acute and chronic respiratory failure with hypercapnia; N39.0 Urinary tract infection, site not specified; I48.21 Permanent atrial fibrillation; G93.1 Anoxic brain damage, not elsewhere classified; J95.851 Ventilator associated pneumonia; K94.23 Gastrostomy malfunction; L03.319 Cellulitis of trunk, unspecified; E11.9 Type 2 diabetes mellitus without complications; I11.0 Hypertensive heart disease with heart failure; I44.7 Left bundle-branch block, unspecified; D72.829 Elevated white blood cell count, unspecified; I35.0 Nonrheumatic aortic (valve) stenosis
CPT/HCPCS: 0241U-QW; 36415; 36600; 71045-TC-FY; 80053; 80162; 81003; 82553; 82803; 82962; 83605; 83735; 83880; 84100; 84443; 84484; 85025; 85610; 85730; 87040; 87070; 87077; 87086; 87186; 87205; 93005; 93010; 93306-TC; 94002; 99291